=== PATIENT | male | born 1955 | race Caucasian/White ===

== ENCOUNTER 2016-02-16 00:23 | Inpatient (IN) | payer MEDICARE, MEDICAID, OTHER ==
[2016-02-16] VITALS (16 sets, daily range): BP systolic 131–227; BP diastolic 83–120; PULSE 57–90; RESP 11–20; TEMP 97.3–97.9; O2SAT 90–100
[~2016-02-16] VITALS: Ht 172.7 cm; Wt 93.7 kg
--- NOTE | 2016-02-16 00:54 | PD ---
HPI Chief Complaint: Neuro Symptoms/ Deficits Time Seen by Provider: 00:27 Travel History International Travel<30 days: No Contact w/Intl Traveler<30days: No Traveled to known affect area: No History of Present Illness HPI 60-year-old male arrives as a transfer from [place]. He evidently has a new left temporoparietal hypodensity with mild local mass effect and sulcal effacement. No large hemorrhagic collection is appreciable. Patient was transferred here with Dr Valero as the consulting neurosurgeon. Evidently he frequents the outside hospital. He arrives there with left-sided numbness and weakness. It was first noticed 2 days ago. Today he called 911 because he felt "all day confused. Outside records demonstrated the patient had difficulty expressing himself. Evidently has a history of stroke however denies residual deficit. Outside emergency department records include no dictation of frequent ED visits for weakness. Furthermore the patient stated to outside provider that he had not taken any of his medication for weeks. Blood glucose on arrival was 340. The patient offers no complaint upon arrival to the ER here. He does not know the year. The patient is oriented to himself in location. His blood pressure was 180/90 in route. Upon arrival here is 134/ 84. PFSH Past Medical History Cancer: Yes (COLON) High Cholesterol: Yes Cerebrovascular Accident: Yes Diabetes: Yes Patient Takes Glucophage: No Hypertension: Yes Myocardial Infarction: Yes Tetanus Vaccination: Unknown Influenza Vaccination: No Past Surgical History Other Surgery: Yes (COLON CANCER SURGERY) Social History Alcohol Use: No Tobacco Use: No Substance Use: Yes (MARIJUANA) Allergies-Medications (Allergen,Severity, Reaction): Coded Allergies: No Known Allergies (Unverified , 02/16/16) Reported Meds & Prescriptions Reported Meds & Active Scripts Active No Active Prescriptions or Reported Medications Review of Systems ROS Limitations: Clinical Condition Physical Exam Narrative GENERAL: 60-year-old male well-nourished well-developed no acute distress SKIN: Warm and dry. HEAD: Atraumatic. Normocephalic. EYES: Pupils equal and round. No scleral icterus. No injection or drainage. ENT: No nasal bleeding or discharge. Mucous membranes pink and moist. NECK: Trachea midline. No JVD. CARDIOVASCULAR: Regular rate and rhythm. No murmur appreciated. RESPIRATORY: No accessory muscle use. Clear to auscultation. Breath sounds equal bilaterally. GASTROINTESTINAL: Abdomen soft, non-tender, nondistended. Hepatic and splenic margins not palpable. MUSCULOSKELETAL: No obvious deformities. No clubbing. No cyanosis. No edema. NEUROLOGICAL: Alert and oriented name and location. There is no focal cranial nerve deficit or facial asymmetry. The patient's speech is clearly comprehensible. An element of expressive aphasia appears present. The patient can elevate both hands for assessment of pronator drift; the right hand drift first. The patient cannot elevate either leg off the bed despite a fairly dramatic efforts to do so. PSYCHOLOGIC: No evidence hallucination. Reasonably cooperative. Data Data Last Documented VS Vital Signs Date Time Temp Pulse Resp B/P Pulse Ox O2 Delivery O2 Flow Rate FiO2 02/16/16 01:07 79 16 174/120 96 Room Air 02/16/16 00:26 97.9 Orders Ecg Monitoring (02/16/16 00:27) Iv Access Insert/Monitor (02/16/16 00:27) Oximetry (02/16/16 00:27) Oxygen Administration (02/16/16 00:27) Mri Brain W/O Contrast (02/16/16 00:43) Admit Order (Ed Use Only) (02/16/16 01:28) MDM Medical Decision Making Medical Screen Exam Complete: Yes Emergency Medical Condition: Yes Medical Record Reviewed: Yes Differential Diagnosis Hemorrhagic stroke, ischemic stroke, altered mental status due to infection or metabolic disorder or polypharmacy or drug abuse Narrative Course The case was discussed with shortly following arrival. An MRI was added on to be performed stat. The patient has multiple medical problems and management per hospitalist service considered appropriate with consultation to neurosurgery. The patient is hemodynamically stable. He is protecting his airway. His GCS is estimated to be 15 (motor 6, verbal 5, eyes 4). At MRI pt was observed to have moved all extremities in coordinated fashion. He was unable to participate with scan 2/2 anxiety. After 1mg IV ativan patient was unable to participate with MR protocol. d/w Dr Montero who has ordered Precedex. Critical Care Narrative Aggregate critical care time was 45 minutes. Time to perform other separately billable procedures was not included in the critical care time. My time did not include minutes spent treating any other patients simultaneously or on activities that did not directly contribute to the patient's treatment. The services I provided to this patient were to treat and/or prevent clinically significant deterioration that could result in: progression of ICH, permanent neurologic injury I provided critical care services requiring my management, as noted below: Chart data review, documentation time, medication orders and management, vital sign assessments/reviewing monitor data, ordering and reviewing lab tests, ordering and interpreting/reviewing x-rays and diagnostic studies, care of the patient and discussion of the patient with the admitting physicians. Diagnosis Primary Impression: Hemorrhagic stroke Additional Impression: Hyperglycemia Admitting Information Admitting Physician Requests: Admit Scripts No Active Prescriptions or Reported Mg Middleton MD Feb 16, 2016 00:54
--- NOTE | 2016-02-16 01:40 | HHI.HP ---
HPI Service Critical Care Medicine Primary Care Physician Unknown Admission Diagnosis Hemorrhagic CVA, Hyperglycemia Diagnosis: Travel History International Travel<30 Days: No Contact w/Intl Traveler <30 Da: No Traveled to Known Affected Are: No History of Present Illness 50-year-old male who was accepted in transfer from [facility] by Dr. Valero with neurosurgery. He has a past history of prior stroke reportedly with no residual deficits, hypertension, diabetes mellitus. He presented to [facility] via [facility] with 2 day history of left- sided weakness and "feeling confused". Documentation from outside hospital indicates that he has frequent ED visits related to weakness. His blood glucose was 340. He had had no reported seizure activity. Documentation indicates that he had left-sided pronator drift and expressive aphasia. CT brain report indicates that there was a comparison study from 11/30/15 that states new left temporoparietal hypodensity with mild mass effect and sulcal effacement. There is central hyperdensity in this location suggesting early petechial hemorrhage. Remote gangliocapsular lacunar infarcts. Remote infarct right cerebellum. EKG demonstrates sinus rhythm. Past Family Social History Allergies: Coded Allergies: No Known Allergies (Unverified , 02/16/16) Past Medical History Stroke Diabetes mellitus Hypertension Hyperlipidemia Retinopathy Peripheral neuropathy Degenerative disc disease Colon cancer Records from outside hospital indicate history of congenital heart disease. Patient was not able to be more specific about his diagnosis when I inquired after MRI. He has no sternotomy scar. Past Surgical History Colectomy Reported Medications Norvasc 5 g by mouth twice a day Aspirin 81 mg by mouth daily Humalog 10 units subcutaneous twice a day Novolin 70/30 units subcutaneous twice a day before meals Vitamin D 50,000 international units weekly Isosorbide dinitrate 40 mg by mouth twice a day Lisinopril 20 mill grams by mouth daily Reglan 10 mg by mouth every 6 hours as needed for nausea and vomiting Social History Reportedly no history of tobacco alcohol or illicit drug use Physical Exam Vital Signs Vital Signs Date Time Temp Pulse Resp B/P Pulse Ox O2 Delivery O2 Flow Rate FiO2 02/16/16 01:07 79 16 174/120 96 Room Air 02/16/16 00:26 97.9 88 14 134/84 97 Physical Exam Temp 97.9 oral Pulse 82 respirations 16 blood pressure 131/83 sats 100% on room air GENERAL: Well-nourished, well-developed patient who is sleepy in ISC bed following sedation for MRI. SKIN: Warm and dry. HEAD: Atraumatic. Normocephalic. EYES: Pupils equal and round, 3mm reactive. No scleral icterus. No injection or drainage. ENT: No nasal bleeding or discharge. Mucous membranes pink and moist. NECK: Trachea midline. No JVD. CARDIOVASCULAR: Regular rate and rhythm. No murmurs rubs or gallops. No sternotomy scar RESPIRATORY: No accessory muscle use. Clear to auscultation. Breath sounds equal bilaterally. GASTROINTESTINAL: Abdomen soft, non-tender, nondistended. Vertical abdominal incision well healed. MUSCULOSKELETAL: Extremities without clubbing, cyanosis, or edema. No obvious deformities. NEUROLOGICAL: Sleepy but arouses to voice post sedation. Moves all extremities to command but not completely cooperative with motor exam. +/- R pronator drift. No facial droop. . No obvious cranial nerve deficits. Oriented to self, hospital. Assessment and Plan Assessment and Plan NEURO: History of stroke Peripheral neuropathy Anxiety L parietal ischemic stroke with small peticheal hemorrhagic conversion. Check 2 D Echo to evaluate from embolic source, carotid u/s, Lipids. MRI L parietal stroke with tiny foci of hemorrhage. Obtain MRA brain/neck- no evidence of vascular abnormality. No carotid stenosis Dr. Valero to evaluate. Required precedex/versed for compliance with MRI. When I initially went to evaluate patient in ED he was awake and conversant with ED registrar and moving all extremities, using his cell phone but complaining of hand numbness. I was called to another medical emergency and then patient was taken to MRI. He was anxious in MRI so Ativan 1 mg IV and then precedex drip were ordered to facilitate MRI. However he became combative with staff requiring security and multiple individuals to assist at bedside. Was given Versed 5 mg IV by ED staff for this reason. RESP: On RA. CV: Hypertension Hyperlipidemia Congenital cardiac anomaly Hold lisinopril for now due to elevated creatinine and unknown baseline renal function. Will give labetalol prn SBP >175 as currently feel that risk of inducing ischemia with lower BP is more likely than risk of hemorrhagic conversion with SBP 160-175 range given tiny foci of hemorrhage that remained small on subsequent MRI. However, will followup recommendations of neuro colleagues. GI: Status post colectomy Nothing by mouth for now. Bedside swallowing assessment and advance diet as tolerated. FEN/RENAL: REED vs ?Chronic kidney disease Unknown baseline renal function. Creatinine at outside hospital was 2.51 Follow-up BMP in a.m. Normal saline 84 mL/h ID: No leukocytosis. White blood cell count at outside hospital was 7.2 HEME: No acute heme and the logic issues. Hemoglobin at outside hospital was 13.7. Coags including PT/INR/PTT at outside hospital were all normal. ENDO: Diabetes mellitus Medium dose insulin sliding scale ac/hs PROPH: SCDs/teds/early ambulation for DVT prophylaxis. Pharmacologic DVT prophylaxis contraindicated due to intracerebral hemorrhage. Protonix 40 mg IV daily for stress ulcer prophylaxis. ACCESS: Peripheral IV providing adequate access at this time Level 3 Ninoska Montero MD Feb 16, 2016 01:40
[2016-02-16] MEDS ORDERED: LORazepam 2 MG/ML VIAL IV PUSH ONE (03:15)
[2016-02-16] MEDS ORDERED: SODIUM CHLOR 0.9% 1000 ML INJ 1,000 ML IV SCH (03:34)
[2016-02-16] MEDS ORDERED: DEXTROSE 50% IN WATER 50 ML VIAL(D50) IV PUSH PRN (03:45)
[2016-02-16] MEDS ORDERED: CHLORHEXIDINE GLUCONATE 2 % 1 PACK (2 CLOTHS) TOP PRN (03:45)
[2016-02-16] MEDS ORDERED: SODIUM CHLORIDE 0.9% FLUSH 5 ML FLUSH IV FLUSH PRN (03:45)
[2016-02-16] MEDS ORDERED: MISCELLANEOUS NURSING INFORMATION XX SCH (03:45)
[2016-02-16] MEDS ORDERED: RESP: ALBUTEROL 2.5 MG/3 ML NEB (PRN) INH (03:45)
[2016-02-16] MEDS ORDERED: GLUCAGON 1 MG/ML VIAL OTHER PRN (03:45)
[2016-02-16] MEDS: CHLORHEXIDINE GLUCONATE 2 % 1 PACK (2 CLOTHS) TOP SCH (04:00)
[2016-02-16] MEDS ORDERED: DEXMEDETOMIDINE INJ 50 ML IV SCH (04:00)
[2016-02-16] MEDS ORDERED: MIDAZOLAM HCL 5 MG/5 ML VIAL IV PUSH ONE ×2 (04:30→11:15)
[2016-02-16] MEDS ORDERED: MIDAZOLAM HCL 5 MG/ML VIAL (1 ML) ONE (04:31)
--- NOTE | 2016-02-16 05:36 | RADRPT ---
EXAM DATE/TIME: 02/16/2016 03:47 This report includes an Addendum and supersedes previous reports for this exam. [facility] COMPARISON: No previous studies available for comparison. INDICATIONS : CVA. Lower extremity weakness. MEDICAL HISTORY : Carcinoma, colon. SURGICAL HISTORY : Colon surgery. ENCOUNTER: Initial ACUITY: 2 day PAIN SCORE: 0/10 LOCATION: head. TECHNIQUE: Multiplanar, multisequence MRI of the brain was performed without contrast. FINDINGS: Abnormal signal involving the cortex and underlying white matter of the left parietal lobe posteriorl y. There is restricted diffusion involving this area. Tiny foci of blooming artifact seen on the SWI MIP images consistent with some blood product. Periventricular high T2 signal abnormality is seen inv olving both cerebral hemispheres. These areas do not show restricted diffusion. Atrophy is noted. Muc osal thickening involving the frontal sinuses, right sphenoid and bilateral ethmoid air cells. No air -fluid levels. Ventricles are normal in size given the level of atrophy. CONCLUSION: 1. Acute infarction involving left parietal lobe posteriorly. Tiny foci of signal abnormality consist ent with blood product within this area of stroke. 2. Atrophy and chronic small vessel ischemic change. Alex Carbone Jr., MD on February 16, 2016 at 5:31 Board Certified Radiologist. This report was verified electronically. ADDENDUM: In addition to the left sided acute infarct, there is a focus of restricted diffusion identified on t he right, a sub-insular external capsule region also characteristic of an area of acute infarction.. Tree Haro MD on February 16, 2016 at 8:53 Board Certified Radiologist. This report was verified electronically.
--- NOTE | 2016-02-16 05:38 | RADRPT ---
EXAM DATE/TIME: 02/16/2016 03:47 [facility] COMPARISON: No previous studies available for comparison. INDICATIONS : CVA. Lower extremity weakness. MEDICAL HISTORY : Carcinoma, colon. SURGICAL HISTORY : Colon surgery. ENCOUNTER: Initial ACUITY: 2 day PAIN SCORE: 0/10 LOCATION: head. Please note a normal MRA of the brain does not entirely exclude the possibility of a small aneurysm, nor the possibility of distal intracranial vessel disease. TECHNIQUE: 3D time of flight MRA was performed. Source images, multiplanar STS MIP, and 3D volume MIP reconstru ctions were reviewed. FINDINGS: There is excellent visualization of the major intracranial arteries out to the second-order branch ve ssels. There is no evidence for aneurysm, vessel truncation or stenosis, and no evidence for vascula r malformation.CONCLUSION: Normal examination. Alex Carbone Jr., MD on February 16, 2016 at 5:35 Board Certified Radiologist. This report was verified electronically.
--- NOTE | 2016-02-16 05:40 | RADRPT ---
EXAM DATE/TIME: 02/16/2016 03:47 [facility] COMPARISON: No previous studies available for comparison. INDICATIONS : Stenosis. MEDICAL HISTORY : Carcinoma, colon. SURGICAL HISTORY : Colon surgery. ENCOUNTER: Initial ACUITY: 2 day PAIN SCORE: 0/10 LOCATION: neck. Percent stenosis is calculated using the diameter of the stenotic region over the diameter of the nor mal distal internal carotid artery. TECHNIQUE: 3D time of flight MRA of the extracranial circulation was performed using a neurovascular coil. Post processing was performed including rotating subvolume maximum intensity projections of each carotid artery, rotating full-volume maximum intensity projections of both carotid arteries, sagittal and cor onal sliding thin-slab reformations of each carotid artery, and left oblique sliding thin slab reform ation through the aortic arch to include the origin of the arch branch vessels. FINDINGS: AORTIC ARCH: Breathing motion artifact degrades the evaluation of the arch vessels. There is a three vessel origin of the great vessels from the aorta. No evidence of ostial narrowing. RIGHT CAROTID: The common carotid artery is intact. The carotid bulb has a normal configuration without ulceration or narrowing. The internal carotid artery lumen is smooth without stenosis. The external carotid ar sandy is intact. LEFT CAROTID: The common carotid artery is intact. The carotid bulb has a normal configuration without ulceration or narrowing. The internal carotid artery lumen is smooth without stenosis. The external carotid ar sandy is intact. VERTEBRALS: The vertebral arteries have a symmetric diameter. No stenotic lesions are seen. CONCLUSION: 1. Patent carotid arteries and vertebral arteries. Alex Carbone Jr., MD on February 16, 2016 at 5:37 Board Certified Radiologist. This report was verified electronically.
[2016-02-16] MEDS: INSULIN ASPART SUPPLEMENTAL SCALE SQ SCH ×4 (07:00→22:30)
[2016-02-16 08:12] LABS: HDL CHOLESTEROL 39.2 MG/DL (40.0-60.0)
[2016-02-16 08:23] LABS: LDL CHOLESTEROL 166 MG/DL (0-99)
[2016-02-16] MEDS: SODIUM CHLOR 0.9% 1000 ML INJ 1,000 ML IV SCH ×2 (08:48→22:08)
[2016-02-16] MEDS ORDERED: ASPIRIN EC 325 MG TABEC PO SCH (09:00)
[2016-02-16] MEDS: PANTOPRAZOLE SODIUM 40 MG VIAL IV SCH (09:23)
[2016-02-16] MEDS: SODIUM CHLORIDE 0.9% FLUSH 5 ML FLUSH IV FLUSH SCH ×2 (09:23→20:39)
[2016-02-16] MEDS ORDERED: LIDOCAINE HCL 2% 100 MG/5 ML SYRINGE ONE (11:14)
[2016-02-16] MEDS ORDERED: ATROPINE SULFATE 1 MG/10 ML SYRINGE ONE (11:14)
[2016-02-16] MEDS ORDERED: EPINEPHrine HCL (1:10,000) 1 MG/10 ML SYRINGE ONE (11:14)
[2016-02-16] MEDS ORDERED: LORazepam 2 MG/ML VIAL ONE (11:46)
--- NOTE | 2016-02-16 11:47 | PD.CONS ---
HPI Service Neurosurgery Consult Requested By ED Reason for Consult abnormal MRI Primary Care Physician Parmjit Francisco MD History of Present Illness 60 yr old with hx of DM presented with confusion, transferred from an outside hospital for abnormal head CT. He was quite agitated in the ED and required restraints for the safety of his care givers. He remains very confused with short term memory difficulty and poor orientation. Right parietal ischemia, acute with hemosiderin deposition was seen on MRI. Review of Systems ROS Limitations: Uncooperative, Combative, Poor Historian Constitutional: COMPLAINS OF: Fatigue Integumentary: COMPLAINS OF: Nail changes Neurologic: COMPLAINS OF: Paresthesias Psychiatric: COMPLAINS OF: Agitation Past Family Social History Allergies: Coded Allergies: No Known Allergies (Unverified , 02/16/16) Past Medical History DM CVA HTN Past Surgical History None Reported Medications Reported Meds & Active Scripts Active No Active Prescriptions or Reported Medications Family History Positive for HTN and DM as well as cerebrovascular disease Social History Quit tobacco, occasional ETOH and marijuana, does not work. Physical Exam Vital Signs Vital Signs Date Time Temp Pulse Resp B/P Pulse Ox O2 Delivery O2 Flow Rate FiO2 02/16/16 05:00 100 Nasal Cannula 2.00 02/16/16 04:50 82 16 131/83 93 Nasal Cannula 2 02/16/16 04:45 80 16 151/90 92 Nasal Cannula 2 02/16/16 04:40 82 16 155/99 92 Nasal Cannula 2 02/16/16 04:20 83 16 186/113 90 02/16/16 02:00 76 16 170/90 100 Room Air 02/16/16 01:07 79 16 174/120 96 Room Air 02/16/16 00:26 97.9 88 14 134/84 97 Physical Exam Awake, tired, opens eyes to voice, speech fluent but repeats the same questions appears well nourished and groomed Pupils small and reactive, face symmetric, right jamar sensory loss includes the lower face Motor strength excellent in both upper and lower extremities, Neglect right sided. No Austin or Babinski Laboratory Laboratory Tests Test 02/16/16 02/16/16 05:15 06:01 Nasal Screen MRSA (PCR) NEGATIVE Triglycerides Level 132 Cholesterol Level 232 LDL Cholesterol 166 HDL Cholesterol 39.2 Cholesterol/HDL Ratio 5.91 Assessment and Plan Diagnosis: (1) Cerebral infarction, associated with systemic hypoxia or ischemia, acute Plan: A repeat CT of the head is ordered. In the absence of new bleeding anti coagulation may be appropriate. Aspirin was ordered for now and can be stopped if therapeutic on another anticoagulant. PT/OT/ST, EEG and neuropsychology evaluation may be helpful. Malick Valero Feb 16, 2016 11:47
[2016-02-16] MEDS: LABETALOL HCL 100 MG/20 ML VIAL IV PUSH PRN ×2 (12:22→18:06)
[2016-02-16] MEDS: MORPHINE SULFATE 4 MG/ML INJ IV PRN ×4 (12:25→23:14)
[2016-02-16] MEDS ORDERED: LORazepam 2 MG/ML VIAL IVP ONE (13:00)
--- NOTE | 2016-02-16 13:41 | RADRPT ---
EXAM DATE/TIME: 02/16/2016 13:21 [facility] COMPARISON: MRI BRAIN W/O CONTRAST, February 16, 2016, 3:47. INDICATIONS : Altered mental status. Right parietal ischemia, acute with hemosiderin deposition was seen on MRI. RADIATION DOSE: 56.35 CTDIvol (mGy) MEDICAL HISTORY : Hypertension. Diabetes mellitus type 2. SURGICAL HISTORY : None. ENCOUNTER: Initial ACUITY: 1 day PAIN SCALE: 0/10 LOCATION: cranial TECHNIQUE: Multiple contiguous axial images were obtained of the head. Using automated exposure control and adj ustment of the mA and/or kV according to patient size, radiation dose was kept as low as reasonably a chievable to obtain optimal diagnostic quality images. FINDINGS: There is low attenuation in the left parietal region identified system with the area of known infarct ion. There is patchy periventricular white matter disease. Remote basal ganglia lacunar infarcts are identified. No fractures. No large acute hemorrhage or mass is identified. There is minimal punctate high density in the left parietal infarct corresponding to the foci of petechial hemorrhage noted on the MRI. CONCLUSION: Left parietal infarct and remote lacunar infarcts identified patchy white matter disease. Subtle pet echial hemorrhage left parietal infarct. Tree Haro MD on February 16, 2016 at 13:38 Board Certified Radiologist. This report was verified electronically.
[2016-02-16 14:04] LABS: PROTHROMBIN TIME - PATIENT 10.5 SEC (9.8-11.6)
[2016-02-16 14:30] LABS: HDL CHOLESTEROL 40.9 MG/DL (40.0-60.0); TOTAL PROTEIN SPE 5.9 GM/DL (6.0-7.6)
[2016-02-16] MEDS: hydrALAZINE HCL 25 MG TAB PO SCH ×3 (15:50→22:30)
[2016-02-16] MEDS: WARFARIN SOD 5 MG TAB PO SCH (16:06)
--- NOTE | 2016-02-16 17:11 | EC ---
Study Study Date:02/16/2016 STUDY CONCLUSIONS SUMMARY - Left ventricle: The cavity size was normal. Wall thickness was normal. Systolic function was normal. The estimated ejection fraction was in the range of 55% to 60%. Wall motion was normal; there were no regional wall motion abnormalities. Doppler parameters are consistent with abnormal left ventricular relaxation (grade 1 diastolic dysfunction). - Left atrium: The atrium was mildly dilated. If LV function is below 40, please consider prescribing an ACEI or ARB or document rationale for non-use. PROCEDURE DATA STUDY STATUS: Elective. Procedure: Transthoracic echocardiography. Image quality was good. Scanning was performed from the parasternal, apical, and subcostal acoustic windows. Study completion: The patient tolerated the procedure well. Transthoracic echocardiography. M-mode, complete 2D, complete spectral Doppler, and color Doppler. Patient status: Inpatient. CARDIAC ANATOMY LEFT VENTRICLE: The cavity size was normal. Wall thickness was normal. Systolic function was normal. The estimated ejection fraction was in the range of 55% to 60%. Wall motion was normal; there were no regional wall motion abnormalities. Doppler parameters are consistent with abnormal left ventricular relaxation (grade 1 diastolic dysfunction). AORTIC VALVE: Trileaflet; normal thickness leaflets. Doppler: Transvalvular velocity was within the normal range. There was no stenosis. No regurgitation. AORTA: Aortic root: The aortic root was normal in size. MITRAL VALVE: Structurally normal valve. Doppler: Transvalvular velocity was within the normal range. There was no evidence for stenosis. Trace regurgitation. Mean gradient: 2mm Hg (D). Peak gradient: 7mm Hg (D). LEFT ATRIUM: The atrium was mildly dilated. RIGHT VENTRICLE: The cavity size was normal. Wall thickness was normal. PULMONIC VALVE: Doppler: Transvalvular velocity was within the normal range. There was no evidence for stenosis. No regurgitation. TRICUSPID VALVE: Structurally normal valve. Doppler: Transvalvular velocity was within the normal range. Trace to mild regurgitation. PULMONARY ARTERY: The main pulmonary artery was normal-sized. Systolic pressure was within the normal range. RIGHT ATRIUM: The atrium was normal in size. PERICARDIUM: There was no pericardial effusion. SYSTEMIC VEINS: Inferior vena cava: The vessel was normal in size. BASIC MEASUREMENTS ADULT Normal Left ventricle LV internal dimension, ED, chordal level, *40.3 mm 43-52 PLAX LV posterior wall thickness, ED 8.56 mm IVS/LVPW ratio, ED 1.23 <1.3 Ventricular septum Septal thickness, ED 10.5 mm Aortic valve Leaflet separation 23 mm 15-26 Left atrium Anterior-posterior dimension 39 mm Right ventricle RV internal dimension, ED, PLAX *18.7 mm 19-38 BASIC MEASUREMENTS ADULT Normal Aortic valve Leaflet separation 23 mm 15-26 Aorta Root diameter, ED 33 mm 20-37 DOPPLER MEASUREMENTS ADULT Normal Main pulmonary artery Pressure, S 16 mm Hg =30 Aortic valve VTI, S 43.7 cm Mitral valve Peak E-wave velocity 79 cm/s Peak A-wave velocity 123 cm/s Mean velocity, D 68.9 cm/s Mean gradient, D 2 mm Hg Peak gradient, D 7 mm Hg Peak E/A ratio 0.6 Tricuspid valve Regurgitant peak velocity 113 cm/s Peak RV-RA gradient, S 5 mm Hg Maximal regurgitant velocity 113 cm/s Systemic veins Estimated CVP 10 mm Hg Right ventricle RV pressure, S 16 mm Hg <30 LEGEND: Mean values are shown as u=mean value. Asterisk (*) chen values outside specified normal range. Prepared and signed by Kal Lazo [id number]
[2016-02-16 18:05] LABS: HEMOGLOBIN A1a 1.1 %; HEMOGLOBIN A1b 1.2 %; HEMOGLOBIN Ao 75.2 %; HEMOGLOBIN F 1.7 %; HEMOGLOBIN P3 5.5 %
--- NOTE | 2016-02-16 19:24 | MG ---
cc: CHASE AZAR Lab No: Date: Age: Sex: M Race: ELECTROENCEPHALOGRAM NUMBER [id number] INTRODUCTION A 60-year-old. Left MCA infarct. DESCRIPTION I do not see any definite left hemisphere abnormalities, some diffuse alpha rhythms and beta rhythms are seen. No epileptiform or seizure activity is noted. Photic stimulation is performed without significant posterior driving. IMPRESSION A normal EEG. No evidence for a focal or diffuse abnormality. MD PAULETTE Pinedo/REJI /6:45 PM /7:18 PM
[2016-02-16] MEDS: ONDANSETRON HCL 4 MG/2 ML VIAL IV PRN (20:15)
[2016-02-16] MEDS: hydrALAZINE HCL 20 MG/ML VIAL IV PUSH PRN ×2 (20:40→23:16)
[2016-02-16] MEDS ORDERED: LABETALOL HCL 100 MG/20 ML VIAL IV PUSH PRN (21:00)
[2016-02-17] VITALS (13 sets, daily range): BP systolic 149–184; BP diastolic 73–106; PULSE 86–122; RESP 9–24; TEMP 97.8–98.8; O2SAT 96–100
[2016-02-17] MEDS ORDERED: DEXMEDETOMIDINE INJ 50 ML IV SCH (00:15)
--- NOTE | 2016-02-17 01:04 | RADRPT ---
EXAM DATE/TIME: 02/17/2016 00:45 [place] COMPARISON: MRI BRAIN W/O CONTRAST, February 16, 2016, 3:47. CT BRAIN W/O CONTRAST, February 16, 2016, 13:21. INDICATIONS : Altered mental status with vomiting. RADIATION DOSE: 57.48 CTDIvol (mGy) MEDICAL HISTORY : Non-responsive. SURGICAL HISTORY : Non-responsive. ENCOUNTER: Initial ACUITY: 1 day PAIN SCALE: Non-responsive LOCATION: cranial TECHNIQUE: Multiple contiguous axial images were obtained of the head. Using automated exposure control and adj ustment of the mA and/or kV according to patient size, radiation dose was kept as low as reasonably a chievable to obtain optimal diagnostic quality images. FINDINGS: Stable appearance compared to the prior study. An acute left parietal infarction is again observed. S mall foci of high attenuation within the infarction consistent with areas of hemorrhage. No new area of infarction. No worsening hemorrhage. Old lacunar infarctions involving left basal ganglia. Periven tricular low attenuation change consistent with chronic small vessel ischemic change. Paranasal sinus es show mucosal thickening throughout scattered ethmoid air cells. Mastoid air cells are clear. CONCLUSION: Stable left parietal infarction. Alex Carbone Jr., MD on February 17, 2016 at 0:58 Board Certified Radiologist. This report was verified electronically.
[2016-02-17] MEDS ORDERED: ONDANSETRON HCL 4 MG/2 ML VIAL IV PUSH ONE (01:15)
[2016-02-17] MEDS: hydrALAZINE HCL 20 MG/ML VIAL IV PUSH PRN (03:46)
[2016-02-17] MEDS: CHLORHEXIDINE GLUCONATE 2 % 1 PACK (2 CLOTHS) TOP SCH (04:00)
[2016-02-17 05:07] LABS: AUTOMATED NEUTROPHIL # 12.8 TH/MM3 (1.8-7.7); BASOPHIL # 0.1 TH/MM3 (0-0.2); BASOPHIL % 0.6 % (0.0-2.0); EOSINOPHIL # 0.1 TH/MM3 (0-0.4); EOSINOPHIL % 0.8 % (0.0-4.0); HEMATOCRIT 43.7 % (39.0-51.0); HEMO FLAGS DIFF FINAL; LYMPH % 6.4 % (9.0-44.0); LYMPHOCYTE # 0.9 TH/MM3 (1.0-4.8); MEAN CELL VOLUME 86.1 FL (80.0-100.0); MEAN CORPUSCULAR HGB CONC 33.7 % (32.0-36.0); MONO % 4.5 % (0.0-8.0); NEUT % 87.7 % (16.0-70.0); PLATELET COUNT 255 TH/MM3 (150-450); RED BLOOD COUNT 5.08 MIL/MM3 (4.50-5.90); RED CELL DISTRIBUTION WIDTH 13.5 % (11.6-17.2); WHITE BLOOD COUNT 14.5 TH/MM3 (4.0-11.0)
[2016-02-17 05:23] LABS: INTERNATIONAL NORMALIZED RATIO 0.9 RATIO; PROTHROMBIN TIME - PATIENT 10.4 SEC (9.8-11.6)
[2016-02-17 05:25] LABS: ALKALINE PHOSPHATASE 153 U/L (45-117); ALT (GPT) 12 U/L (12-78); ANION GAP 9 MEQ/L (5-15); AST (GOT) 15 U/L (15-37); BICARBONATE 23.8 MEQ/L (21.0-32.0); BLOOD UREA NITROGEN 16 MG/DL (7-18); CHLORIDE 107 MEQ/L (98-107); GLOMERULAR FILTRATION RATE 29 ML/MIN (>89); MAGNESIUM 2.1 MG/DL (1.5-2.5); POTASSIUM 4.2 MEQ/L (3.5-5.1); SODIUM (NA) 140 MEQ/L (136-145); TOTAL BILIRUBIN ADULT 0.9 MG/DL (0.2-1.0)
[2016-02-17] MEDS: INSULIN ASPART SUPPLEMENTAL SCALE SQ SCH ×3 (06:49→22:54)
--- NOTE | 2016-02-17 08:15 | HHI.PR ---
Subjective Remarks sr Objective Vital Signs Date Time Temp Pulse Resp B/P Pulse Ox O2 Delivery O2 Flow Rate FiO2 02/17/16 06:00 108 02/17/16 04:00 97.8 96 15 164/82 98 02/17/16 04:00 96 02/17/16 02:00 86 02/17/16 00:00 90 02/17/16 00:00 98.1 90 9 166/81 96 02/16/16 22:00 78 02/16/16 20:00 80 02/16/16 20:00 97.8 80 12 198/96 95 02/16/16 19:55 97 21 02/16/16 18:00 77 02/16/16 16:00 97.9 85 14 227/103 99 02/16/16 16:00 85 02/16/16 14:00 70 02/16/16 12:00 97.3 90 20 169/90 100 02/16/16 12:00 90 02/16/16 10:00 69 I/O 02/16/16 02/16/16 02/16/16 02/17/16 02/17/16 02/17/16 07:00 15:00 23:00 07:00 15:00 23:00 Intake Total 959 ml 695 ml 569 ml Output Total 600 ml 300 ml 775 ml Balance 359 ml 395 ml -206 ml Intake Oral 240 ml 250 ml IV Total 719 ml 445 ml 569 ml Output Urine Total 600 ml 200 ml 325 ml Emesis 100 ml 450 ml # Voids 3 1 3 # Bowel Movements 0 Result Diagram: 02/17/16 0437 02/17/16 0437 Objective Remarks much more alert and awake vff moves all well follows commands Assessment and Plan Assessment and Plan there is some petechial blood in the infarct but with bilat cva at risk for new cva will dw family about anticoagulation he probably would do ok on coumadin now but some risk and otherwise could wait 4 weeks fu hypercoag screen and holter echo neg ldl inc but statin can inc risk of bleeding and if am starting coumadin so will hold on statin for 2 months and start then trop neg Walt Peterson MD Feb 17, 2016 08:15
--- NOTE | 2016-02-17 08:16 | MB ---
cc: CHASE AZAR M.D. DATE OF CONSULTATION: 02/16/2016 HISTORY OF PRESENT ILLNESS The patient is a 60-year-old man who came from [facility] with a history hypertension, prior stroke, diabetes, left-sided weakness, feeling confused, sugar was 340, left-sided drift, left-sided hypodensity, some minimal petechial hemorrhage. ALLERGIES NO KNOWN DRUG ALLERGIES. PAST MEDICAL HISTORY As above, also: 1. Hyperlipidemia. 2. Retinopathy. 3. Peripheral neuropathy. 4. DJD. 5. Colon cancer. MEDICATION Medications at home: 1. Norvasc. 2. 81 of aspirin. 3. Humalog insulin. 4. Novolin. 5. Vitamin D. 6. Isosorbide. 7. Lisinopril. 8. Reglan. REVIEW OF SYSTEMS Really unable to get a great review of systems, he says yes to me with everything I ask him. PHYSICAL EXAMINATION VITAL SIGNS: He has been in sinus rhythm, according to the nurse, 186/113 and 131/83, 93, 82, afebrile. NECK: There were no carotid bruits. HEART: Heart was regular rhythm. I do not detect a murmur. Pupils were equal. Visual bianchi were full. He actually has his eyes deviated slightly to the left, more than the right. Face is symmetric. He moves all extremities well. Toes are downgoing bilaterally. DTRs are trace. He does not know the year. He does not know where he is, he says hopefully in a cab. He may live with his , it is hard to say. Not a good historian. LABORATORY DATA MRA of the Cffofl-fb-Woqcnw and neck were read as normal. MRI of the brain shows several small right MCA infarcts and a larger left posterior MCA infarct, some minimal petechial change on the SWI images. IMPRESSION Left MCA infarct with some small right ones, likely cardioembolic. Will check an echocardiogram. I would anticoagulate him with Coumadin, this is likely cardioembolic. Check troponin, some additional blood work. Monitor him on a Holter, look for any atrial fibrillation. I will be following him with you in the hospital. Considering his age, will check a hypercoag screen on him. Will check a CT scan of his brain also to just get a better feel of how much blood is in there, because I think the anticoagulation is going to be his main treatment for prevention of future stroke. MD PAULETTE Pinedo/TLL /8:47 AM /8:15 AM
[2016-02-17] MEDS: ONDANSETRON HCL 4 MG/2 ML VIAL IV PRN (09:24)
[2016-02-17] MEDS: PANTOPRAZOLE SODIUM 40 MG VIAL IV SCH (09:24)
[2016-02-17] MEDS: hydrALAZINE HCL 50 MG TAB PO SCH ×3 (09:24→18:00)
[2016-02-17] MEDS: SODIUM CHLORIDE 0.9% FLUSH 5 ML FLUSH IV FLUSH SCH ×2 (09:25→21:00)
[2016-02-17 10:58] LABS: RAPID PLASMA REAGIN SCREEN NON-REACTIVE (NON-REACTVE)
[2016-02-17] MEDS: WARFARIN SOD 5 MG TAB PO SCH ×2 (16:00→16:34)
--- NOTE | 2016-02-17 16:29 | HHI.CCPN ---
Subjective Remarks/Hospital Course 50-year-old male who was accepted in transfer from [facility] by Dr. Valero with neurosurgery. He has a past history of prior stroke reportedly with no residual deficits, hypertension, diabetes mellitus. He presented to [facility] via [facility] with 2 day history of left- sided weakness and "feeling confused". Documentation from outside hospital indicates that he has frequent ED visits related to weakness. His blood glucose was 340. He had had no reported seizure activity. Documentation indicates that he had left-sided pronator drift and expressive aphasia. CT brain report indicates that there was a comparison study from 11/30/15 that states new left temporoparietal hypodensity with mild mass effect and sulcal effacement. There is central hyperdensity in this location suggesting early petechial hemorrhage. Remote gangliocapsular lacunar infarcts. Remote infarct right cerebellum. EKG demonstrates sinus rhythm. 02/16 The patient had an episode of nausea and vomiting around midnight, repeat CT of the head imaging obtained noticed stable left parietal infarction. Patient tolerating a heart healthy diet today. Objective Vital Signs Date Time Temp Pulse Resp B/P Pulse Ox O2 Delivery O2 Flow Rate FiO2 02/17/16 14:00 102 02/17/16 12:00 98.4 11 163/80 99 02/16/16 19:55 21 02/16/16 07:00 Nasal Cannula 2.00 Intake and Output 02/16/16 02/16/16 02/17/16 08:00 16:00 00:00 Intake Total 959 ml 695 ml Output Total 600 ml 300 ml Balance 359 ml 395 ml Result Diagram: 02/17/16 0437 02/17/16 0437 Imaging Last [address] 02/17/16 0000 Signed Impressions: Service Date/Time: Wednesday, February 17, 2016 00:45 - CONCLUSION: Stable left parietal infarction. Alex Carbone Jr., MD Head CT 02/16/16 1122 Signed Impressions: Service Date/Time: Tuesday, February 16, 2016 13:21 - CONCLUSION: Left parietal infarct and remote lacunar infarcts identified patchy white matter disease. Subtle petechial hemorrhage left parietal infarct. Tree Haro MD Brain MRI 02/16/16 0043 Signed Impressions: Service Date/Time: Tuesday, February 16, 2016 03:47 - CONCLUSION: 1. Acute infarction involving left parietal lobe posteriorly. Tiny foci of signal abnormality consistent with blood product within this area of stroke. 2. Atrophy and chronic small vessel ischemic change. Alex Carbone Jr., MD ADDENDUM: In addition to the left sided acute infarct, there is a focus of restricted diffusion identified on the right, a sub-insular external capsule region also characteristic of an area of acute infarction.. Tree Haro MD Neck Magnetic Resonance Angiography 02/16/16 Signed Impressions: Service Date/Time: Tuesday, February 16, 2016 03:47 - CONCLUSION: 1. Patent carotid arteries and vertebral arteries. Alex Carbone Jr., MD Head Magnetic Resonance Angiography 02/16/16 Signed Impressions: Service Date/Time: Tuesday, February 16, 2016 03:47 - CONCLUSION: Normal examination. Alex Carbone Jr., MD Last [address] 02/17/16 Signed Impressions: Service Date/Time: Wednesday, February 17, 2016 00:45 - CONCLUSION: Stable left parietal infarction. Alex Carbone Jr., MD Objective Remarks GENERAL: Well-nourished, well-developed, alert patient with obvious inappropriate conversation, and short-term memory loss SKIN: Warm and dry. HEAD: Atraumatic. Normocephalic. EYES: Pupils equal and round, 3mm reactive. No scleral icterus. No injection or drainage. ENT: No nasal bleeding or discharge. Mucous membranes pink and moist. NECK: Trachea midline. No JVD. CARDIOVASCULAR: Regular rate and rhythm. No murmurs rubs or gallops. No sternotomy scar RESPIRATORY: No accessory muscle use. Clear to auscultation. Breath sounds equal bilaterally. On room air GASTROINTESTINAL: Abdomen soft, non-tender, nondistended. Vertical abdominal incision well healed. MUSCULOSKELETAL: Extremities without clubbing, cyanosis, or edema. No obvious deformities. NEUROLOGICAL: Moves extremities 4 , alert and oriented to self .No obvious cranial nerve deficits. Noted difficulty with fine motor movement, dialing phone, gasping food. Urinary Catheter: No Vascular Central Line Catheter: No A/P Assessment and Plan NEURO: History of stroke Peripheral neuropathy Anxiety L parietal ischemic stroke with small peticheal hemorrhagic conversion. Check 2 D Echo to evaluate from embolic source, carotid u/s, Lipids. MRI L parietal stroke with tiny foci of hemorrhage. MRA brain/neck- no evidence of vascular abnormality. No carotid stenosis Nsgy Dr. Valero on board Neurology Dr.Mac Hammond- possible etiology cardioembolic,planned discussion with family (daughters)regarding initiation of Coumadin therapy Psychiatry awchwpu-hqtsme-av recommendations RESP: No acute issues. 100% O2 sat on Room Air CV: Hypertension Hyperlipidemia Congenital cardiac anomaly Lisinopril secondary to elevated creatinine. Obtain nephrology consult Labetalol when necessary Hydralazine 20 mg 4 times a day GI: Status post colectomy Heart healthy diet Formal swallow assessment1/2- no restrictions Bowel regimen FEN/RENAL: REED vs ?Chronic kidney disease Creatinine 2.51->2.34 Follow-up BMP Discontinue Normal saline 84 mL/h, Hep-Lock IV ID: No acute issues Afebrile HEME: Monitor CBC Follow up results of immunological studies, and prothrombin gene mutation study ENDO: Diabetes mellitus Medium dose insulin sliding scale ac/hs PROPH: SCDs/teds/early ambulation for DVT prophylaxis. Pharmacologic DVT prophylaxis contraindicated due to intracerebral hemorrhage. Protonix 40 mg IV daily for stress ulcer prophylaxis. ACCESS: Peripheral IV's. Level 2 Physician Marily Ash MD Feb 17, 2016 16:29
--- NOTE | 2016-02-17 16:32 | PD.CONS ---
Provisional Diagnosis Admission Date Feb 16, 2016 at 01:40 [place] I. Neurocognitive disorder due CVA History of Present Illness Service Psychiatry Consult Requested By Primary Care Physician Parmjit Francisco MD HPI The patient is a 60-year-old man, with no psychiatric history, medical history of DM, HTN, the latter CVA, hospitalized this time due to left periatrial skinny stroke, consulted to psychiatry due to disorganized, aggressive behavior. Chart reviewed, case discussed with nurse in charge, no collateral information available. On psychiatric evaluation patient was found very irritable, verbally hostile, disorganized, refusing to cooperate with evaluation with the argument that he doesn't need a psychiatrist. He says that what he needs to do is to speak with his daughter and get out of this place "because you'll want to kill". Patient also say that he doesn't trust anybody here "I am not going to allow anybody to pull their hands on me". He is restraint in 2 poinst, disoriented in time person and place. As per nurse, patient has been agitated, combative, loud periodically. He has been redirectable, but very difficult to deal with. Review of Systems ROS Limitations: Uncooperative Past Family Social History Coded Allergies: No Known Allergies (Unverified , 02/16/16) No Active Prescriptions or Reported Meds Current Medications Medications (Trade) Dose Ordered Sig/[place] Route Start Time Stop Time Status Last Admin (NS Flush) 2 ml UNSCH PRN IV FLUSH 02/16/16 03:45 (NS Flush) 2 ml BID IV FLUSH 02/16/16 09:00 02/17/16 09:25 (Morphine Inj) 2 mg Q2H PRN IV 02/16/16 03:45 02/16/16 23:14 (Protonix Inj) 40 mg DAILY IV 02/16/16 09:00 02/17/16 09:24 (Zofran Inj) 4 mg Q6H PRN IV 02/16/16 03:45 02/17/16 09:24 Miscellaneous Information 1 [id number] XX 02/16/16 03:45 02/16/16 05:52 (Chlorhexidine 2% Cloth) 3 pack Taper DAILY@04 TOP 02/16/16 04:00 02/11/17 03:59 (Chlorhexidine 2% Cloth) 3 pack UNSCH PRN TOP 02/16/16 03:45 (D50w (Vial) Inj) 25 ml UNSCH PRN IV PUSH 02/16/16 03:45 Glucagon 1 mg 1 mg UNSCH PRN OTHER 02/16/16 03:45 (NS 1000 ml Inj) 1,000 ml @ 75 mls/hr [id number] IV 02/16/16 08:48 (Coumadin) 5 mg DAILY@1600 PO 02/16/16 16:00 02/16/16 16:06 (Trandate Inj) 10 mg Q1HR PRN IV PUSH 02/16/16 21:00 Hydralazine HCl 10 mg 10 mg Q1HR PRN IV PUSH 02/16/16 20:30 02/17/16 03:46 (Precedex Inj) 50 ml @ 0 mls/hr TITRATE IV 02/17/16 00:15 (Haldol Inj) 2 mg Q6H PRN IV 02/17/16 00:30 (Apresoline) 50 mg TID PO 02/17/16 09:00 02/17/16 09:24 Physical Exam Vital Signs Vital Signs Date Time Temp Pulse Resp B/P Pulse Ox O2 Delivery O2 Flow Rate FiO2 02/17/16 14:00 102 02/17/16 12:00 98.4 11 163/80 99 02/16/16 19:55 21 02/16/16 07:00 Nasal Cannula 2.00 I/O 02/16/16 02/16/16 02/17/16 08:00 16:00 00:00 Intake Total 959 ml 695 ml Output Total 600 ml 300 ml Balance 359 ml 395 ml Mental Status Examination Patient is on cooperative to complete MS Appearance man, age-appropriate, good hygiene, irritable, on cooperative, combative Speech: Rapid Orientation: Person Memory: Impaired (describe) Thought Process: Flight of Ideas, Loose Association Assessment & Plan Problem List: (1) 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 Chart reviewed, case discussed with nurse in charge, no collateral information available. On psychiatric evaluation patient was found very irritable, verbally hostile, disorganized, refusing to cooperate with evaluation with the argument that he doesn't need a psychiatrist. He says that what he needs to do is to speak with his daughter and get out of this place "because you'll want to kill". Patient also say that he doesn't trust anybody here "I am not going to allow anybody to pull their hands on me". He is restraint in 2 poinst, disoriented in time person and place. As per nurse, patient has been agitated, combative, loud periodically. He has been redirectable, but very difficult to deal with. This presentation seems to be secondary to his acute neurological condition, but an underlying difficult character structure is highly possible. Agree with Haldol 2 mg IM when necessary aggressive behavior and agitation, we'll start Seroquel 50 mg twice a day for behavioral control. Continue follow-up. ICD Code: G31.84 Assessment & Plan Estimated LOS: Shorty Boo MD Feb 17, 2016 16:32
[2016-02-17 18:21] LABS: ALBUMIN SPE 2.68 GM/DL (3.50-5.00); ALPHA 1 GLOBULIN 0.31 GM/DL (0.11-0.29); ALPHA 2 GLOBULIN 0.89 GM/DL (0.22-1.00)
[2016-02-17 19:00] LABS: AMPHETAMINE, URINE NEG (NEG); BARBITURATES, URINE NEG (NEG); COCAINE, URINE NEG (NEG)
[2016-02-17 19:01] LABS: BLOOD, URINE TRACE (NEG); COMMENT (UR) CULT NOT INDICATED; CULTURE IF INDICATED CULT NOT INDICATED; GLUCOSE,URINE 1000 mg/dL (NEG); HYALINE CAST, URINE 1 /lpf (RARE); KETONE, URINE 10 mg/dL (NEG); MUCUS URINE FEW /lpf (OCC); NITRITE,URINE NEG (NEG); SQUAMOUS EPITHELIAL CELL URINE <1 /hpf (0-5); URINE COLOR YELLOW (YELLW/STRAW)
[2016-02-17] MEDS: MORPHINE SULFATE 4 MG/ML INJ IV PRN (20:03)
[2016-02-17] MEDS: HALOPERIDOL LACTATE 5 MG/ML AMP IV PRN (20:18)
[2016-02-17] MEDS: DOCUSATE SODIUM 100 MG CAP PO SCH (21:00)
[2016-02-18] VITALS (13 sets, daily range): BP systolic 122–185; BP diastolic 63–92; PULSE 80–106; RESP 11–19; TEMP 97.6–98.3; O2SAT 95–98
[2016-02-18] MEDS: CHLORHEXIDINE GLUCONATE 2 % 1 PACK (2 CLOTHS) TOP SCH (04:00)
[2016-02-18] MEDS: INSULIN ASPART SUPPLEMENTAL SCALE SQ SCH ×4 (07:00→21:36)
[2016-02-18] MEDS: hydrALAZINE HCL 20 MG/ML VIAL IV PUSH PRN (08:02)
[2016-02-18] MEDS: HALOPERIDOL LACTATE 5 MG/ML AMP IV PRN (08:03)
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
[2016-02-18] MEDS: hydrALAZINE HCL 50 MG TAB PO SCH ×3 (08:56→17:11)
[2016-02-18] MEDS: SODIUM CHLORIDE 0.9% FLUSH 5 ML FLUSH IV FLUSH SCH ×2 (09:00→21:35)
[2016-02-18] MEDS: DOCUSATE SODIUM 100 MG CAP PO SCH ×2 (09:02→21:35)
[2016-02-18] MEDS: PANTOPRAZOLE SODIUM 40 MG VIAL IV SCH (09:02)
[2016-02-18] MEDS: QUEtiapine FUMARATE 25 MG TAB PO SCH ×2 (09:02→17:11)
[2016-02-18 10:36] LABS: MEAN CELL VOLUME 86.2 FL (80.0-100.0); MEAN CORPUSCULAR HEMOGLOBIN 29.2 PG (27.0-34.0); MEAN CORPUSCULAR HGB CONC 33.8 % (32.0-36.0); PLATELET COUNT 231 TH/MM3 (150-450); RED BLOOD COUNT 4.52 MIL/MM3 (4.50-5.90); RED CELL DISTRIBUTION WIDTH 13.6 % (11.6-17.2); REVIEW FLAG FINAL; WHITE BLOOD COUNT 9.8 TH/MM3 (4.0-11.0)
[2016-02-18 10:48] LABS: PROTHROMBIN TIME - PATIENT 11.2 SEC (9.8-11.6)
[2016-02-18 10:56] LABS: BICARBONATE 22.4 MEQ/L (21.0-32.0); POTASSIUM 3.9 MEQ/L (3.5-5.1)
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
[2016-02-18] MEDS ORDERED: HALOPERIDOL LACTATE 5 MG/ML AMP IV PRN (12:30)
--- NOTE | 2016-02-18 13:00 | HHI.PR ---
Subjective Remarks The patient was relatively sedated. He seemed comfortable. Nursing was at the bedside. The patient was unable to explain his symptoms at this time. Objective Vitals Vital Signs Date Time Temp Pulse Resp B/P Pulse Ox O2 Delivery O2 Flow Rate FiO2 02/18/16 10:00 98 02/18/16 08:00 98.0 106 18 185/91 96 02/18/16 08:00 106 02/18/16 08:00 98 02/18/16 06:00 80 02/18/16 04:00 98.3 83 12 175/92 98 02/18/16 04:00 83 02/18/16 02:00 81 02/18/16 00:00 95 02/18/16 00:00 98.0 95 18 162/77 97 02/17/16 22:00 92 02/17/16 20:00 98.2 122 24 184/106 100 02/17/16 20:00 122 02/17/16 18:00 104 02/17/16 16:00 98.0 103 11 149/73 99 02/17/16 16:00 104 02/17/16 14:00 102 I/O 02/17/16 02/17/16 02/17/16 02/18/16 02/18/16 02/18/16 07:00 15:00 23:00 07:00 15:00 23:00 Intake Total 569 ml 1020 ml 250 ml 750 ml Output Total 775 ml 650 ml 400 ml 250 ml Balance -206 ml 370 ml -150 ml 500 ml Intake Oral 420 ml 250 ml 750 ml IV Total 569 ml 600 ml Output Urine Total 325 ml 550 ml 400 ml 250 ml Emesis 450 ml 100 ml # Voids 3 4 # Bowel Movements 0 Result Diagram: 02/18/16 1000 02/18/16 1000 Imaging Last Impressions Head CT 02/17/16 0000 Signed Impressions: Service Date/Time: Wednesday, February 17, 2016 00:45 - CONCLUSION: Stable left parietal infarction. Alex Carbone Jr., MD Brain MRI 02/16/16 0043 Signed Impressions: Service Date/Time: Tuesday, February 16, 2016 03:47 - CONCLUSION: 1. Acute infarction involving left parietal lobe posteriorly. Tiny foci of signal abnormality consistent with blood product within this area of stroke. 2. Atrophy and chronic small vessel ischemic change. Alex Carbone Jr., MD ADDENDUM: In addition to the left sided acute infarct, there is a focus of restricted diffusion identified on the right, a sub-insular external capsule region also characteristic of an area of acute infarction.. Tree Haro MD Neck Magnetic Resonance Angiography 02/16/16 0000 Signed Impressions: Service Date/Time: Tuesday, February 16, 2016 03:47 - CONCLUSION: 1. Patent carotid arteries and vertebral arteries. Alex Carbone Jr., MD Head Magnetic Resonance Angiography 02/16/16 0000 Signed Impressions: Service Date/Time: Tuesday, February 16, 2016 03:47 - CONCLUSION: Normal examination. Alex Carbone Jr., MD Objective Remarks GENERAL: Well-nourished, well-developed pt appearing lethargic. In restraints. SKIN: Warm and dry. HEAD: Atraumatic. Normocephalic. EYES: Pupils equal and round, 3mm reactive. No scleral icterus. No injection or drainage. ENT: No nasal bleeding or discharge. Mucous membranes pink and moist. NECK: Trachea midline. No JVD. CARDIOVASCULAR: Regular rate and rhythm. No murmurs rubs or gallops. No sternotomy scar RESPIRATORY: No accessory muscle use. Clear to auscultation. Breath sounds equal bilaterally. On room air GASTROINTESTINAL: Abdomen soft, non-tender, nondistended. Vertical abdominal incision well healed. MUSCULOSKELETAL: Extremities without clubbing, cyanosis, or edema. No obvious deformities. NEUROLOGICAL: Moves extremities 4, alert and oriented to self . No obvious cranial nerve deficits. Unable to cooperate with neurological examination. Medications and IVs Current Medications Medications (Trade) Dose Ordered Sig/Ceasar Route Start Time Stop Time Status Last Admin (NS Flush) 2 ml UNSCH PRN IV FLUSH 02/16/16 03:45 (NS Flush) 2 ml BID IV FLUSH 02/16/16 09:00 02/18/16 09:00 (Morphine Inj) 2 mg Q2H PRN IV 02/16/16 03:45 02/16/16 23:14 (Protonix Inj) 40 mg DAILY IV 02/16/16 09:00 02/18/16 09:02 (Zofran Inj) 4 mg Q6H PRN IV 02/16/16 03:45 02/17/16 09:24 Miscellaneous Information 1 Q361D XX 02/16/16 03:45 02/16/16 05:52 (Chlorhexidine 2% Cloth) 3 pack Taper DAILY@04 TOP 02/16/16 04:00 02/11/17 03:59 (Chlorhexidine 2% Cloth) 3 pack UNSCH PRN TOP 02/16/16 03:45 (D50w (Vial) Inj) 25 ml UNSCH PRN IV PUSH 02/16/16 03:45 (Glucagon Inj) 1 mg UNSCH PRN OTHER 02/16/16 03:45 (Coumadin) 5 mg DAILY@1600 PO 02/16/16 16:00 02/16/16 16:06 (Trandate Inj) 10 mg Q1HR PRN IV PUSH 02/16/16 21:00 (Apresoline Inj) 10 mg Q1HR PRN IV PUSH 02/16/16 20:30 02/18/16 08:02 (Apresoline) 50 mg TID PO 02/17/16 09:00 02/17/16 16:34 (SEROquel) 50 mg BID@09,12 PO 02/18/16 09:00 02/18/16 09:02 (Colace) 100 mg BID PO 02/17/16 21:00 02/18/16 09:02 (Haldol Inj) 5 mg Q12HR PRN IV 02/18/16 21:00 A/P Assessment and Plan Acute CVA L parietal ischemic stroke with small petechial hemorrhagic conversion. MRI L parietal stroke with tiny foci of hemorrhage. Echo with grade 1 diastolic dysfunction. Carotids without stenosis. Neurosurgery and neurology consults appreciated. - Coumadin started per neurology as risk of recurrent CVA outweighs risk of bleeding. - PT/OT/ST. Will likely need rehab. - Follow up results of immunological studies, and prothrombin gene mutation study. Hypertension Uncontrolled. - hydralazine started. Add amlodipine 02/18/16. - labetalol as needed. Agitation Psychiatry consult appreciated. - meds per psychiatry. Haldol as needed. REED vs ? chronic kidney disease Creatinine elevated. - Follow-up BMP. - avoid nephrotoxic agents. - nephrology consult pending. Diabetes mellitus Glucose relatively well controlled at this time. - Medium dose insulin sliding scale ac/hs. PROPH: SCDs/teds, Coumadin. Discharge Planning Awaiting clinical improvement. Ismael Jerome DO Feb 18, 2016 13:00
--- NOTE | 2016-02-18 14:07 | EKG ---
Date Performed: 02/18/2016 Time Performed: 12:32:09 PTAGE: 60 years EKG: Sinus rhythm Nonspecific ST-T wave changes ABNORMAL ECG NO PREVIOUS TRACING DOCTOR: Ed Molina Interpretating Date/Time 02/18/2016 14:05:51
[2016-02-18 15:06] LABS: ANA SCREEN NEG (NEG)
[2016-02-18] MEDS: WARFARIN SOD 5 MG TAB PO SCH (17:11)
--- NOTE | 2016-02-18 18:04 | PD.CONS ---
HPI Service Nephrology Consult Requested By Reason for Consult Renal insufficiency Primary Care Physician Parmjit Francisco MD History of Present Illness THe patient is a 60 yo male who was transferred to this facility from [facility] in [place] for new onset stroke. He is very agitated and had to be restrained yesterday. Daughters present in room and endorse that he is a very noncompliant patient. He does not have a PCP and goes to the ED at [facility] for care. He is a long stand diabetic and does not regularly use his medications. There is mention of diabetic retinopathy and diabetic neuropathy in his charts. The patient himself denies any known renal insufficiency, but there was a lab drawn at [facility] in Oct 2015 that showed a SCr of 2.52. Labs from [facility] showed SCr at 2.51 that improved to 2.34 on admission. UA is positive for heavy proteinuria. (Jocelyn Manzanares) Review of Systems ROS Limitations: Uncooperative (Jocelyn Manzanares) Past Family Social History Allergies: Coded Allergies: No Known Allergies (Unverified , 02/16/16) Past Medical History CVA DM with reported retinopathy and neuropathy HTN HLD DDD Hx of Colon Ca Past Surgical History Partial colectomy Reported Medications Reported Meds & Active Scripts Active No Active Prescriptions or Reported Medications Active Ordered Medications Current Medications Medications (Trade) Dose Ordered Sig/Ceasar Route Start Time Stop Time Status Last Admin (NS Flush) 2 ml UNSCH PRN IV FLUSH 02/16/16 03:45 (NS Flush) 2 ml BID IV FLUSH 02/16/16 09:00 02/18/16 09:00 (Morphine Inj) 2 mg Q2H PRN IV 02/16/16 03:45 02/16/16 23:14 (Protonix Inj) 40 mg DAILY IV 02/16/16 09:00 02/18/16 09:02 (Zofran Inj) 4 mg Q6H PRN IV 02/16/16 03:45 02/17/16 09:24 Miscellaneous Information 1 Q361D XX 02/16/16 03:45 02/16/16 05:52 (Chlorhexidine 2% Cloth) 3 pack Taper DAILY@04 TOP 02/16/16 04:00 02/11/17 03:59 (Chlorhexidine 2% Cloth) 3 pack UNSCH PRN TOP 02/16/16 03:45 (D50w (Vial) Inj) 25 ml UNSCH PRN IV PUSH 02/16/16 03:45 (Glucagon Inj) 1 mg UNSCH PRN OTHER 02/16/16 03:45 (Coumadin) 5 mg DAILY@1600 PO 02/16/16 16:00 02/18/16 17:11 (Trandate Inj) 10 mg Q1HR PRN IV PUSH 02/16/16 21:00 (Apresoline Inj) 10 mg Q1HR PRN IV PUSH 02/16/16 20:30 02/18/16 08:02 (Apresoline) 50 mg TID PO 02/17/16 09:00 02/18/16 17:11 (SEROquel) 50 mg BID@09,12 PO 02/18/16 09:00 02/18/16 17:11 (Colace) 100 mg BID PO 02/17/16 21:00 02/18/16 09:02 (Haldol Inj) 5 mg Q12HR PRN IV 02/18/16 21:00 (Norvasc) 10 mg DAILY PO 02/18/16 13:00 Family History Not able to obtain Social History Non smoker Denies EtOH Lives alone (Jocelyn Manzanares) Physical Exam Vital Signs Vital Signs Date Time Temp Pulse Resp B/P Pulse Ox O2 Delivery O2 Flow Rate FiO2 02/18/16 14:00 85 02/18/16 12:00 94 02/18/16 12:00 98.3 90 11 122/67 95 02/18/16 10:00 98 02/18/16 08:00 98.0 106 18 185/91 96 02/18/16 08:00 106 02/18/16 08:00 98 02/18/16 06:00 80 02/18/16 04:00 98.3 83 12 175/92 98 02/18/16 04:00 83 02/18/16 02:00 81 02/18/16 00:00 95 02/18/16 00:00 98.0 95 18 162/77 97 02/17/16 22:00 92 02/17/16 20:00 98.2 122 24 184/106 100 02/17/16 20:00 122 Physical Exam GENERAL: Laying in bed with eyes closed. Has 4-point restraints on. 2 daughters present in room. SKIN: Warm and dry. HEAD: Atraumatic. Normocephalic. EYES: Pupils equal and round. No scleral icterus. No injection or drainage. ENT: No nasal bleeding or discharge. Mucous membranes pink and moist. NECK: Trachea midline. No JVD. CARDIOVASCULAR: Regular rate and rhythm. RESPIRATORY: No accessory muscle use. Clear to auscultation. Breath sounds equal bilaterally. GASTROINTESTINAL: Abdomen soft, non-tender, nondistended. Hepatic and splenic margins not palpable. MUSCULOSKELETAL: Extremities without clubbing, cyanosis, or edema. No obvious deformities. NEUROLOGICAL: Awake and alert. Normal speech. PSYCHIATRIC: Inappropriate mood and affect; insight and judgment abnormal. Laboratory Laboratory Tests Test 02/17/16 02/18/16 18:15 10:00 Urine Color YELLOW Urine Turbidity CLEAR Urine pH 6.0 Urine Specific [place] 1.015 Urine Protein 300 Urine Glucose (UA) 1000 Urine Ketones 10 Urine Occult Blood TRACE Urine Nitrite NEG Urine Bilirubin NEG Urine Urobilinogen LESS THAN 2.0 Urine Leukocyte Esterase NEG Urine RBC LESS THAN 1 Urine WBC 2 Urine Squamous Epithelial <1 Cells Urine Hyaline Casts 1 Urine Mucus FEW Microscopic Urinalysis Comment CULT NOT INDICATED Urine Opiates Screen POS Urine Barbiturates Screen NEG Urine Amphetamines Screen NEG Urine Benzodiazepines Screen POS Urine Cocaine Screen NEG Urine Cannabinoids Screen NEG White Blood Count 9.8 Red Blood Count 4.52 Hemoglobin 13.2 Hematocrit 39.0 Mean Corpuscular Volume 86.2 Mean Corpuscular Hemoglobin 29.2 Mean Corpuscular Hemoglobin 33.8 Concent Red Cell Distribution Width 13.6 Platelet Count 231 Mean Platelet Volume 8.3 Prothrombin Time 11.2 Prothromb Time International 1.0 Ratio Sodium Level 141 Potassium Level 3.9 Chloride Level 109 Carbon Dioxide Level 22.4 Anion Gap 10 Blood Urea Nitrogen 15 Creatinine 2.57 Estimat Glomerular Filtration 26 Rate Random Glucose 165 Calcium Level 8.5 Phosphorus Level 2.7 Magnesium Level 2.0 (Jocelyn Manzanares) Result Diagram: 02/18/16 1000 02/18/16 1000 Imaging Last Impressions Head CT 02/17/16 0000 Signed Impressions: Service Date/Time: Wednesday, February 17, 2016 00:45 - CONCLUSION: Stable left parietal infarction. Alex Carbone Jr., MD Brain MRI 02/16/16 0043 Signed Impressions: Service Date/Time: Tuesday, February 16, 2016 03:47 - CONCLUSION: 1. Acute infarction involving left parietal lobe posteriorly. Tiny foci of signal abnormality consistent with blood product within this area of stroke. 2. Atrophy and chronic small vessel ischemic change. Alex Carbone Jr., MD ADDENDUM: In addition to the left sided acute infarct, there is a focus of restricted diffusion identified on the right, a sub-insular external capsule region also characteristic of an area of acute infarction.. Tree Haro MD Neck Magnetic Resonance Angiography 02/16/16 0000 Signed Impressions: Service Date/Time: Tuesday, February 16, 2016 03:47 - CONCLUSION: 1. Patent carotid arteries and vertebral arteries. Alex Carbone Jr., MD Head Magnetic Resonance Angiography 02/16/16 Signed Impressions: Service Date/Time: Tuesday, February 16, 2016 03:47 - CONCLUSION: Normal examination. Alex Carbone Jr., MD (Jocelyn Manzanares) Assessment and Plan Problem List: (1) Chronic renal disease, stage 4, severely decreased glomerular filtration rate (GFR) between 15-29 mL/min/1.73 square meter Plan: We do not have many labs to go by, but appears that baseline SCr around 2.5 at least since Oct 2015 according to lab drawn at [facility]. Given his longstanding DM and HTN, it is likely that this is his baseline. He does have heavy proteinuria which we will attempt to quantify by 24h urine collection. Has condom cath, so might be difficult to get. Check UPCR as well. Will also check renal US to assess renal parenchyma. Discussed compliance with the patient. His daughters are present and are also trying to help get the patient on board with taking care of himself. He appears to have very little insight into his healthcare. We will see the patient intermittently. (2) Uncontrolled diabetes mellitus Plan: Mgmt as per primary team (3) Hypertension Plan: Will defer HTN management to CC and neurology at the present given his recent stroke. (4) Cerebral infarction, associated with systemic hypoxia or ischemia, acute Plan: As above (5) Noncompliance (Jocelyn Manzanares) Assessment and Plan The exam, history, and the medical decision-making described in the above note were completed with the assistance of the PASuleman. I reviewed and agree with the findings presented. I attest that I had a [id number] encounter with the patient on the same day, and personally performed and documented my assessment and findings in the medical record. (Debbie Rosales MD) Jocelyn Manzanares Feb 18, 2016 18:04 Debbie Rosales MD Feb 19, 2016 16:15
--- NOTE | 2016-02-18 22:50 | RADRPT ---
EXAM DATE/TIME: 02/18/2016 22:15 [place] COMPARISON: No previous studies available for comparison. INDICATIONS : Increased BUN and creatinine. MEDICAL HISTORY : Carcinoma, colon. Cerebrovascular accident. Heart attack. Hypertension. Paresthesia. Diabetes. Ma rijuana use. SURGICAL HISTORY : Colon cancer surgery. ENCOUNTER: Initial ACUITY: 1 day PAIN SCORE: 0/10 LOCATION: Bilateral flank MEASUREMENTS: RIGHT KIDNEY: 10.8 x 5.2 x 5.4 cm LEFT KIDNEY: 10.5 x 5.6 x 5.6 cm FINDINGS: RIGHT KIDNEY: Renal cortex is normal in thickness and increase in echotexture. No hydronephrosis, stone, or mass. LEFT KIDNEY: Renal cortex is normal in thickness and increase in echotexture. No hydronephrosis, stone, or mass. Tiny simple cyst lower pole measures 7 x 7 x 5 mm. BLADDER: Within normal limits given the degree of distension. CONCLUSION: 1. Echogenic kidneys which can be seen with medical renal disease. 2. Tiny left renal cyst. Christopher Greer MD on February 18, 2016 at 22:48 Board Certified Radiologist. This report was verified electronically.
[2016-02-19] VITALS (12 sets, daily range): BP systolic 157–186; BP diastolic 79–90; PULSE 82–118; RESP 13–39; TEMP 97.6–98.3; O2SAT 96–99
[2016-02-19 03:55] LABS: THROMBIN TIME FOR LA ND sec (13-19)
[2016-02-19] MEDS: hydrALAZINE HCL 20 MG/ML VIAL IV PUSH PRN ×2 (04:34→22:44)
[2016-02-19] MEDS: CHLORHEXIDINE GLUCONATE 2 % 1 PACK (2 CLOTHS) TOP SCH (05:05)
[2016-02-19 05:14] LABS: HEMATOCRIT 40.2 % (39.0-51.0); MEAN CELL VOLUME 86.3 FL (80.0-100.0); MEAN CORPUSCULAR HEMOGLOBIN 29.2 PG (27.0-34.0); MEAN CORPUSCULAR HGB CONC 33.8 % (32.0-36.0); PLATELET COUNT 233 TH/MM3 (150-450); RED BLOOD COUNT 4.66 MIL/MM3 (4.50-5.90); RED CELL DISTRIBUTION WIDTH 13.9 % (11.6-17.2); REVIEW FLAG FINAL; WHITE BLOOD COUNT 9.8 TH/MM3 (4.0-11.0)
[2016-02-19 05:22] LABS: PROTHROMBIN TIME - PATIENT 10.9 SEC (9.8-11.6)
[2016-02-19 05:30] LABS: BICARBONATE 24.9 MEQ/L (21.0-32.0); MAGNESIUM 2.3 MG/DL (1.5-2.5)
[2016-02-19] MEDS: INSULIN ASPART SUPPLEMENTAL SCALE SQ SCH ×4 (07:00→21:49)
--- NOTE | 2016-02-19 08:13 | HHI.PR ---
Subjective Remarks sr Objective Vital Signs Date Time Temp Pulse Resp B/P Pulse Ox O2 Delivery O2 Flow Rate FiO2 02/19/16 06:00 114 02/19/16 04:00 97.9 90 13 186/90 98 02/19/16 04:00 90 02/19/16 02:00 82 02/19/16 00:00 97.7 87 26 161/79 96 02/19/16 00:00 87 02/18/16 22:00 90 02/18/16 21:00 90 02/18/16 20:00 97.6 85 11 134/63 98 02/18/16 20:00 81 02/18/16 18:00 88 02/18/16 16:00 98.0 102 19 167/78 96 02/18/16 14:00 85 02/18/16 12:00 94 02/18/16 12:00 98.3 90 11 122/67 95 02/18/16 10:00 98 I/O 02/18/16 02/18/16 02/18/16 02/19/16 02/19/16 02/19/16 07:00 15:00 23:00 07:00 15:00 23:00 Intake Total 750 ml 340 ml 720 ml 480 ml Output Total 250 ml 250 ml 250 ml 550 ml Balance 500 ml 90 ml 470 ml -70 ml Intake Oral 750 ml 340 ml 720 ml 480 ml Output Urine Total 250 ml 250 ml 250 ml 550 ml # Bowel Movements 0 Result Diagram: 02/19/16 0424 02/19/16 0424 Objective Remarks alert and awake vff moves all well is in good mood names ok Assessment and Plan Assessment and Plan there is some petechial blood in the infarct but with bilat cva at risk for new cva fu hypercoag screen and holter still pend echo neg ldl inc but statin can inc risk of bleeding and starting coumadin so will hold on statin for 2 months and start then trop neg i dw joseline daughter and described risk of bleeding into brain even from coumadin and already some small blood in left infarct but theat if not on anticoagulation at risk for more cva likely embolic she agrees to go ahead with coumadin n he needs to get oob with PT got his coumadin last noc much better watch inr ? ok to floor tele Walt Peterson MD Feb 19, 2016 08:13
[2016-02-19] MEDS: QUEtiapine FUMARATE 25 MG TAB PO SCH ×2 (08:33→12:20)
[2016-02-19] MEDS: PANTOPRAZOLE SODIUM 40 MG VIAL IV SCH (08:33)
[2016-02-19] MEDS: DOCUSATE SODIUM 100 MG CAP PO SCH ×2 (08:34→21:48)
[2016-02-19] MEDS: SODIUM CHLORIDE 0.9% FLUSH 5 ML FLUSH IV FLUSH SCH ×2 (08:35→21:48)
[2016-02-19] MEDS: hydrALAZINE HCL 50 MG TAB PO SCH ×3 (08:35→17:40)
[2016-02-19] MEDS ORDERED: WARFARIN SOD 7.5 MG TAB PO SCH (16:00)
--- NOTE | 2016-02-19 16:30 | HHI.NPPN ---
Subjective History of Present Illness THe patient is a 60 yo male who was transferred to this facility from [facility] in [place] for new onset stroke. He is very agitated and had to be restrained yesterday. Daughters present in room and endorse that he is a very noncompliant patient. He does not have a PCP and goes to the ED at [facility] for care. He is a long stand diabetic and does not regularly use his medications. There is mention of diabetic retinopathy and diabetic neuropathy in his charts. The patient himself denies any known renal insufficiency, but there was a lab drawn at [facility] in Oct 2015 that showed a SCr of 2.52. Labs from [facility] showed SCr at 2.51 that improved to 2.34 on admission. Interval History Patient appears more alert. No verbal complaints currently. Nurse indicated that his fluid intake has improved as compared to yesterday. Objective Data Data 02/18/16 02/19/16 19:00 07:00 Intake Total 340 ml 1200 ml Output Total 250 ml 800 ml Balance 90 ml 400 ml Intake Oral 340 ml 1200 ml Output Urine Total 250 ml 800 ml # Bowel Movements 0 Vital Signs Date Time Temp Pulse Resp B/P Pulse Ox O2 Delivery O2 Flow Rate FiO2 02/19/16 16:00 96 02/19/16 14:00 111 02/19/16 12:00 118 02/19/16 12:00 109 16 157/79 96 02/19/16 10:00 118 02/19/16 08:00 98.3 108 16 98 02/19/16 08:00 88 02/19/16 06:00 114 02/19/16 04:00 97.9 90 13 186/90 98 02/19/16 04:00 90 02/19/16 02:00 82 02/19/16 00:00 97.7 87 26 161/79 96 02/19/16 00:00 87 02/18/16 22:00 90 02/18/16 21:00 90 02/18/16 20:00 97.6 85 11 134/63 98 02/18/16 20:00 81 02/18/16 18:00 88 -: 02/19/16 0424 02/19/16 0424 Physical Exam General Appearance: Well Developed, Well Nourished, No Acute Distress, Comfortable Eyes Eye Exam: Sclera White Neck Neck Exam: Trachea Midline Pulmonary Resp Exam: Clear Bilaterally, Breath Sounds Equal, No Distress Cardiology CV Exam: Regular, Normal Sinus Rhythm, Good Perfusion Gastrointestinal/Abdomen GI Exam: Soft, Non-Tender Genitourinary Exam: Clear Urine Extremeties Extremities Exam: No Edema Neurologic Neuro Exam: Alert, Awake, Speech Clear Assessment/Plan Discussed Condition With: Patient Problem List: (1) Chronic renal disease, stage 4, severely decreased glomerular filtration rate (GFR) between 15-29 mL/min/1.73 square meter Plan: Patient's creatinine level has risen somewhat since yesterday. As indicated above the patient's oral intake of fluid apparently was not too good yesterday but improved today. Hopefully the creatinine level will stabilize. BMP a.m. I discussed with patient importance of diabetic control Progression of his kidney disease and of the need to establish with an outpatient coordinate measuring machine technician when he returns home [facility]. Patient has shown poor insight previously as per family in regard to his medical care and hopefully this will improve. He was advised that if he does not improve medical compliance he will likely progress to end-stage renal disease prematurely with requirement for dialytic support. We do not have many labs to go by, but appears that baseline SCr around 2.5 at least since Oct 2015 according to lab drawn at [facility]. Given his longstanding DM and HTN, it is likely that this is his baseline. We will continue to see the patient intermittently. (2) Uncontrolled diabetes mellitus Plan: Mgmt as per primary team (3) Hypertension Plan: Will defer HTN management to CC and neurology at the present given his recent stroke. (4) Cerebral infarction, associated with systemic hypoxia or ischemia, acute Plan: As above (5) Noncompliance Debbie Rosales MD Feb 19, 2016 16:30
--- NOTE | 2016-02-19 16:32 | HHI.PR ---
Subjective Remarks The patient was awake, alert and cooperative. He had no acute complaints. He knew that he had a stroke. He said that his legs were weak. Nursing was at the bedside. Objective Vitals Vital Signs Date Time Temp Pulse Resp B/P Pulse Ox O2 Delivery O2 Flow Rate FiO2 02/19/16 16:00 96 02/19/16 14:00 111 02/19/16 12:00 118 02/19/16 12:00 109 16 157/79 96 02/19/16 10:00 118 02/19/16 08:00 98.3 108 16 98 02/19/16 08:00 88 02/19/16 06:00 114 02/19/16 04:00 97.9 90 13 186/90 98 02/19/16 04:00 90 02/19/16 02:00 82 02/19/16 00:00 97.7 87 26 161/79 96 02/19/16 00:00 87 02/18/16 22:00 90 02/18/16 21:00 90 02/18/16 20:00 97.6 85 11 134/63 98 02/18/16 20:00 81 02/18/16 18:00 88 I/O 02/18/16 02/18/16 02/18/16 02/19/16 02/19/16 02/19/16 07:00 15:00 23:00 07:00 15:00 23:00 Intake Total 750 ml 340 ml 720 ml 480 ml 600 ml Output Total 250 ml 250 ml 250 ml 550 ml 500 ml Balance 500 ml 90 ml 470 ml -70 ml 100 ml Intake Oral 750 ml 340 ml 720 ml 480 ml 600 ml Output Urine Total 250 ml 250 ml 250 ml 550 ml 500 ml # Bowel Movements 0 1 Result Diagram: 02/19/16 0424 02/19/16 0424 Imaging Last Impressions Renal Ultrasound 02/18/16 0000 Signed Impressions: Service Date/Time: Thursday, February 18, 2016 22:15 - CONCLUSION: 1. Echogenic kidneys which can be seen with medical renal disease. 2. Tiny left renal cyst. Christopher Greer MD Head CT 02/17/16 0000 Signed Impressions: Service Date/Time: Wednesday, February 17, 2016 00:45 - CONCLUSION: Stable left parietal infarction. Alex Carbone Jr., MD Brain MRI 02/16/16 0043 Signed Impressions: Service Date/Time: Tuesday, February 16, 2016 03:47 - CONCLUSION: 1. Acute infarction involving left parietal lobe posteriorly. Tiny foci of signal abnormality consistent with blood product within this area of stroke. 2. Atrophy and chronic small vessel ischemic change. Alex Carbone Jr., MD ADDENDUM: In addition to the left sided acute infarct, there is a focus of restricted diffusion identified on the right, a sub-insular external capsule region also characteristic of an area of acute infarction.. Tree Haro MD Neck Magnetic Resonance Angiography 02/16/16 0000 Signed Impressions: Service Date/Time: Tuesday, February 16, 2016 03:47 - CONCLUSION: 1. Patent carotid arteries and vertebral arteries. Alex Carbone Jr., MD Head Magnetic Resonance Angiography 02/16/16 0000 Signed Impressions: Service Date/Time: Tuesday, February 16, 2016 03:47 - CONCLUSION: Normal examination. Alex Carbone Jr., MD Objective Remarks GENERAL: Well-nourished, well-developed pt appearing lethargic. In restraints. SKIN: Warm and dry. HEAD: Atraumatic. Normocephalic. EYES: Pupils equal and round, 3mm reactive. No scleral icterus. No injection or drainage. ENT: No nasal bleeding or discharge. Mucous membranes pink and moist. NECK: Trachea midline. No JVD. CARDIOVASCULAR: Regular rate and rhythm. No murmurs rubs or gallops. No sternotomy scar RESPIRATORY: No accessory muscle use. Clear to auscultation. Breath sounds equal bilaterally. On room air GASTROINTESTINAL: Abdomen soft, non-tender, nondistended. Vertical abdominal incision well healed. MUSCULOSKELETAL: Extremities without clubbing, cyanosis, or edema. No obvious deformities. NEUROLOGICAL: Moves extremities 4, alert and oriented to self . No obvious cranial nerve deficits. Strength 3/5 in lower extremities, 4/5 in upper extremities. PSYCH: Mood and affect appropriate. Medications and IVs Current Medications Medications (Trade) Dose Ordered Sig/Ceasar Route Start Time Stop Time Status Last Admin (NS Flush) 2 ml UNSCH PRN IV FLUSH 02/16/16 03:45 (NS Flush) 2 ml BID IV FLUSH 02/16/16 09:00 02/19/16 08:35 (Morphine Inj) 2 mg Q2H PRN IV 02/16/16 03:45 02/16/16 23:14 (Protonix Inj) 40 mg DAILY IV 02/16/16 09:00 02/19/16 08:33 (Zofran Inj) 4 mg Q6H PRN IV 02/16/16 03:45 02/17/16 09:24 Miscellaneous Information 1 Q361D XX 02/16/16 03:45 02/16/16 05:52 (Chlorhexidine 2% Cloth) 3 pack Taper DAILY@04 TOP 02/16/16 04:00 02/11/17 03:59 02/19/16 05:05 (Chlorhexidine 2% Cloth) 3 pack UNSCH PRN TOP 02/16/16 03:45 (D50w (Vial) Inj) 25 ml UNSCH PRN IV PUSH 02/16/16 03:45 (Glucagon Inj) 1 mg UNSCH PRN OTHER 02/16/16 03:45 (Trandate Inj) 10 mg Q1HR PRN IV PUSH 02/16/16 21:00 (Apresoline Inj) 10 mg Q1HR PRN IV PUSH 02/16/16 20:30 02/19/16 04:34 (Apresoline) 50 mg TID PO 02/17/16 09:00 02/19/16 12:20 (SEROquel) 50 mg BID@09,12 PO 02/18/16 09:00 02/19/16 12:20 (Colace) 100 mg BID PO 02/17/16 21:00 02/19/16 08:34 (Haldol Inj) 5 mg Q12HR PRN IV 02/18/16 21:00 Amlodipine Besylate 10 mg 10 mg DAILY PO 02/18/16 13:00 02/19/16 08:34 (Coumadin Consult Pharmacy) 0 ml @ 0 mls/hr UNSCH OTHER 02/19/16 15:45 (Coumadin) 7.5 mg DAILY@16 PO 02/19/16 16:00 A/P Assessment and Plan Acute CVA/ metabolic encephalopathy L parietal ischemic stroke with small petechial hemorrhagic conversion. MRI L parietal stroke with tiny foci of hemorrhage. Echo with grade 1 diastolic dysfunction. Carotids without stenosis. Neurosurgery and neurology consults appreciated. Mental status improved 02/18. - Coumadin started per neurology as risk of recurrent CVA outweighs risk of bleeding. - PT/OT/ST. Will likely need rehab. - Follow up results of immunological studies, and prothrombin gene mutation study. Hypertension Blood pressure improved 02/18. - hydralazine started. Added amlodipine 02/18/16. - labetalol as needed. Agitation Psychiatry consult appreciated. Agitation largely improved 02/18. - meds per psychiatry. Haldol as needed. REED vs ? chronic kidney disease Creatinine elevated. Appreciate nephrology consult. - Follow-up BMP. - avoid nephrotoxic agents. Diabetes mellitus Glucose fluctuates. - Medium dose insulin sliding scale ac/hs. Added Levemir 02/18. PROPH: SCDs/teds, Coumadin. Discharge Planning Transfer to the floor. Ismael Jerome DO Feb 19, 2016 16:32
[2016-02-19] MEDS: CHOLECALCIFEROL (VIT D3) 1000 UNIT TAB PO SCH (17:00)
[2016-02-19] MEDS ORDERED: INSULIN DETEMIR 100 UNITS/ML VIAL SQ SCH (21:00)
[2016-02-20] VITALS (12 sets, daily range): BP systolic 133–187; BP diastolic 70–91; PULSE 86–100; RESP 16–30; TEMP 97.8–98.8; O2SAT 97–99
[2016-02-20] MEDS: hydrALAZINE HCL 20 MG/ML VIAL IV PUSH PRN ×2 (00:40→05:20)
[2016-02-20 04:16] LABS: INTERNATIONAL NORMALIZED RATIO 1.1 RATIO; PROTHROMBIN TIME - PATIENT 12.7 SEC (9.8-11.6)
[2016-02-20 04:46] LABS: BICARBONATE 24.6 MEQ/L (21.0-32.0); MAGNESIUM 2.3 MG/DL (1.5-2.5); POTASSIUM 4.1 MEQ/L (3.5-5.1)
[2016-02-20] MEDS: CHLORHEXIDINE GLUCONATE 2 % 1 PACK (2 CLOTHS) TOP SCH (04:56)
[2016-02-20] MEDS: INSULIN ASPART SUPPLEMENTAL SCALE SQ SCH ×4 (07:01→22:46)
--- NOTE | 2016-02-20 08:44 | HHI.PR ---
Subjective Remarks sr Objective Vital Signs Date Time Temp Pulse Resp B/P Pulse Ox O2 Delivery O2 Flow Rate FiO2 02/20/16 06:00 98 02/20/16 04:00 94 02/20/16 04:00 98.0 94 21 167/91 98 02/20/16 02:00 89 02/20/16 00:00 97.9 100 30 187/88 97 02/20/16 00:00 100 02/19/16 22:00 90 02/19/16 20:00 97.6 94 39 169/88 99 02/19/16 20:00 89 02/19/16 18:00 107 02/19/16 16:00 96 02/19/16 16:00 97.7 103 16 170/83 96 02/19/16 14:00 111 02/19/16 12:00 118 02/19/16 12:00 109 16 157/79 96 02/19/16 10:00 118 I/O 02/19/16 02/19/16 02/19/16 02/20/16 02/20/16 02/20/16 07:00 15:00 23:00 07:00 15:00 23:00 Intake Total 480 ml 600 ml 480 ml 480 ml Output Total 550 ml 500 ml 700 ml 1100 ml Balance -70 ml 100 ml -220 ml -620 ml Intake Oral 480 ml 600 ml 480 ml 480 ml Output Urine Total 550 ml 500 ml 700 ml 1100 ml # Bowel Movements 1 Result Diagram: 02/19/16 0424 02/20/16 0341 Objective Remarks alert and awake vff moves all well is in good mood names ok no change Assessment and Plan Assessment and Plan there is some petechial blood in the infarct but with bilat cva at risk for new cva fu hypercoag screen and holter still pend echo neg ldl inc but statin can inc risk of bleeding and starting coumadin so will hold on statin for 2 months and start then trop neg i dw joseline daughter and described risk of bleeding into brain even from coumadin and already some small blood in left infarct but theat if not on anticoagulation at risk for more cva likely embolic she agrees to go ahead with coumadin n he needs to get oob with PT got his coumadin last noc much better watch inr ? ok to floor tele 02/20/16 stable neuro ok to floor oob please do not overshoot inr with blood in infarct be careful of dose over 5mg here to start i will fu tuesday Walt Peterson MD Feb 20, 2016 08:44
--- NOTE | 2016-02-20 08:56 | HHI.PYPN ---
Subjective Remarks Patient was seen today for reevaluation, he is his affect, mood and behavior are significantly improved, patient is able to sustain a conversation and cooperative, less irritable, sarcastic than the last time he was seen. Patient expresses that he feels much better, doesn't have any acute complaints at this moment, he knows the reason he is in the hospital,he knows he had a stroke and is now recuperation, he is partially oriented, he knows that he is in the hospital and is already 2017, however some moments of confusion observed, and memory problems still persisted, but with less intensity. Patient reports good mood, good sleep, good appetite, denies anxiety, denies perceptual disturbances , kimi, suicidal or homicidal ideation. As per nurses, no behavioral or mood dysregulation has been observed in the last 24 hours, she is fully compliant with medication and medical recommendations. Review of Systems Constitutional: DENIES: Diaphoretic episodes, Fatigue, Fever, Weight gain, Weight loss, Chills, Dizziness, Change in appetite, Night Sweats Endocrine: DENIES: Heat/cold intolerance, Polydipsia, Polyuria, Polyphagia Eyes: DENIES: Blurred vision, Diplopia, Eye inflammation, Eye pain, Vision loss , Photosensitivity, Double Vision Ears, nose, mouth, throat: DENIES: Tinnitus, Hearing loss, Vertigo, Nasal discharge, Oral lesions, Throat pain, Hoarseness, Ear Pain, Running Nose, Epistaxis, Sinus Pain, Toothache, Odynophagia Respiratory: DENIES: Apneas, Cough, Snoring, Wheezing, Hemoptysis, Sputum production, Shortness of breath Cardiovascular: DENIES: Chest pain, Palpitations, Syncope, Dyspnea on Exertion , PND, Lower Extremity Edema, Orthopnea, Claudication Gastrointestinal: DENIES: Abdominal pain, Black stools, Bloody stools, Constipation, Diarrhea, Nausea, Vomiting, Difficulty Swallowing, Anorexia Integumentary: DENIES: Abnormal pigmentation, Nail changes, Pruritus, Rash Hematologic/lymphatic: DENIES: Bruising, Lymphadenopathy Immunologic/allergic: DENIES: Eczema, Urticaria Psychiatric: COMPLAINS OF: Confusion Objective Alert: Yes Evans: Person, Place (partially), Date (partially), Situation Mood: Calm, Oppositional Affect: Euthymic Memory Intact: Immediate, Recent Hallucinations: Other (none) Delusions: No Delusion Type: Other (not illicit) Suicidal: Ideation (he denies) Homicidal: Ideation (he denies) Insight/Judgement Improved Labs Test 02/20/16 03:41 Prothrombin Time 12.7 SEC Prothromb Time International 1.1 RATIO Ratio Sodium Level 140 MEQ/L Potassium Level 4.1 MEQ/L Chloride Level 106 MEQ/L Carbon Dioxide Level 24.6 MEQ/L Anion Gap 9 MEQ/L Blood Urea Nitrogen 20 MG/DL Creatinine 2.74 MG/DL Estimat Glomerular Filtration 24 ML/MIN Rate Random Glucose 298 MG/DL Calcium Level 8.8 MG/DL Magnesium Level 2.3 MG/DL Vitals/IOs Vital Signs Date Time Temp Pulse Resp B/P Pulse Ox O2 Delivery O2 Flow Rate FiO2 02/20/16 06:00 98 02/20/16 04:00 98.0 21 167/91 98 02/16/16 19:55 21 02/16/16 07:00 Nasal Cannula 2.00 Intake and Output 02/19/16 02/19/16 02/20/16 08:00 16:00 00:00 Intake Total 480 ml 600 ml 480 ml Output Total 550 ml 500 ml 700 ml Balance -70 ml 100 ml -220 ml Assessment & Plan Problem List: (1) 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 Patient does not need any immediate psychiatric intervention. Continue Seroquel 50 mg twice a day, Haldol 5 mg IM every 12 hours when necessary aggressive behavior and agitation. ICD Code: G31.84 Assessment & Plan Estimated LOS: days Justification for Cont. Inpt. Patient does not need psychiatric hospitalization at this moment Shorty Burden MD Feb 20, 2016 08:56
[2016-02-20] MEDS: SODIUM CHLORIDE 0.9% FLUSH 5 ML FLUSH IV FLUSH SCH ×2 (09:00→21:00)
[2016-02-20] MEDS: DOCUSATE SODIUM 100 MG CAP PO SCH ×2 (09:00→21:00)
[2016-02-20] MEDS: PANTOPRAZOLE SODIUM 40 MG VIAL IV SCH (09:19)
[2016-02-20] MEDS: CHOLECALCIFEROL (VIT D3) 1000 UNIT TAB PO SCH (09:19)
[2016-02-20] MEDS: hydrALAZINE HCL 50 MG TAB PO SCH ×3 (09:19→17:10)
[2016-02-20] MEDS: QUEtiapine FUMARATE 25 MG TAB PO SCH ×2 (09:24→11:57)
--- NOTE | 2016-02-20 14:55 | HHI.PR ---
Subjective Remarks The patient was working with occupational therapy. Nursing was at the bedside. The patient was frustrated that he was having difficulties with weakness and speech. He was not hopefully will recover to baseline. He still complained of double vision. Objective Vitals Vital Signs Date Time Temp Pulse Resp B/P Pulse Ox O2 Delivery O2 Flow Rate FiO2 02/20/16 12:00 98.7 99 18 133/72 98 02/20/16 12:00 99 02/20/16 10:00 98 02/20/16 08:00 90 02/20/16 08:00 98.8 92 25 169/88 99 02/20/16 07:00 99 Room Air 02/20/16 06:00 98 02/20/16 04:00 94 02/20/16 04:00 98.0 94 21 167/91 98 02/20/16 02:00 89 02/20/16 00:00 97.9 100 30 187/88 97 02/20/16 00:00 100 02/19/16 22:00 90 02/19/16 20:00 97.6 94 39 169/88 99 02/19/16 20:00 89 02/19/16 18:00 107 02/19/16 16:00 96 02/19/16 16:00 97.7 103 16 170/83 96 I/O 02/19/16 02/19/16 02/19/16 02/20/16 02/20/16 02/20/16 07:00 15:00 23:00 07:00 15:00 23:00 Intake Total 480 ml 600 ml 480 ml 480 ml Output Total 550 ml 500 ml 700 ml 1100 ml Balance -70 ml 100 ml -220 ml -620 ml Intake Oral 480 ml 600 ml 480 ml 480 ml Output Urine Total 550 ml 500 ml 700 ml 1100 ml # Bowel Movements 1 Result Diagram: 02/19/16 0424 02/20/16 0341 Imaging Last Impressions Renal Ultrasound 02/18/16 0000 Signed Impressions: Service Date/Time: Thursday, February 18, 2016 22:15 - CONCLUSION: 1. Echogenic kidneys which can be seen with medical renal disease. 2. Tiny left renal cyst. Christopher Greer MD Head CT 02/17/16 0000 Signed Impressions: Service Date/Time: Wednesday, February 17, 2016 00:45 - CONCLUSION: Stable left parietal infarction. Alex Carbone Jr., MD Brain MRI 02/16/16 0043 Signed Impressions: Service Date/Time: Tuesday, February 16, 2016 03:47 - CONCLUSION: 1. Acute infarction involving left parietal lobe posteriorly. Tiny foci of signal abnormality consistent with blood product within this area of stroke. 2. Atrophy and chronic small vessel ischemic change. Alex Carbone Jr., MD ADDENDUM: In addition to the left sided acute infarct, there is a focus of restricted diffusion identified on the right, a sub-insular external capsule region also characteristic of an area of acute infarction.. Tree Haro MD Neck Magnetic Resonance Angiography 02/16/16 0000 Signed Impressions: Service Date/Time: Tuesday, February 16, 2016 03:47 - CONCLUSION: 1. Patent carotid arteries and vertebral arteries. Alex Carbone Jr., MD Head Magnetic Resonance Angiography 02/16/16 0000 Signed Impressions: Service Date/Time: Tuesday, February 16, 2016 03:47 - CONCLUSION: Normal examination. Alex Carbone Jr., MD Objective Remarks GENERAL: Well-nourished, well-developed pt appearing lethargic. SKIN: Warm and dry. HEAD: Atraumatic. Normocephalic. EYES: Pupils equal and round, 3mm reactive. No scleral icterus. No injection or drainage. ENT: No nasal bleeding or discharge. Mucous membranes pink and moist. NECK: Trachea midline. No JVD. CARDIOVASCULAR: Regular rate and rhythm. No murmurs rubs or gallops. No sternotomy scar RESPIRATORY: No accessory muscle use. Clear to auscultation. Breath sounds equal bilaterally. On room air GASTROINTESTINAL: Abdomen soft, non-tender, nondistended. Vertical abdominal incision well healed. MUSCULOSKELETAL: Extremities without clubbing, cyanosis, or edema. No obvious deformities. NEUROLOGICAL: Moves extremities 4, alert and oriented to self . No obvious cranial nerve deficits. Strength 3/5 in lower extremities, 4/5 in upper extremities. PSYCH: Teary-eyed. Medications and IVs Current Medications Medications (Trade) Dose Ordered Sig/Ceasar Route Start Time Stop Time Status Last Admin (NS Flush) 2 ml UNSCH PRN IV FLUSH 02/16/16 03:45 (NS Flush) 2 ml BID IV FLUSH 02/16/16 09:00 02/20/16 09:00 (Morphine Inj) 2 mg Q2H PRN IV 02/16/16 03:45 02/16/16 23:14 (Protonix Inj) 40 mg DAILY IV 02/16/16 09:00 02/20/16 09:19 (Zofran Inj) 4 mg Q6H PRN IV 02/16/16 03:45 02/17/16 09:24 Miscellaneous Information 1 Q361D XX 02/16/16 03:45 02/16/16 05:52 (Chlorhexidine 2% Cloth) 3 pack Taper DAILY@04 TOP 02/16/16 04:00 02/11/17 03:59 02/20/16 04:56 (Chlorhexidine 2% Cloth) 3 pack UNSCH PRN TOP 02/16/16 03:45 (D50w (Vial) Inj) 25 ml UNSCH PRN IV PUSH 02/16/16 03:45 (Glucagon Inj) 1 mg UNSCH PRN OTHER 02/16/16 03:45 (Trandate Inj) 10 mg Q1HR PRN IV PUSH 02/16/16 21:00 02/20/16 03:22 (Apresoline Inj) 10 mg Q1HR PRN IV PUSH 02/16/16 20:30 02/20/16 05:20 (Apresoline) 50 mg TID PO 02/17/16 09:00 02/20/16 09:19 (SEROquel) 50 mg BID@09,12 PO 02/18/16 09:00 02/20/16 11:57 (Colace) 100 mg BID PO 02/17/16 21:00 02/19/16 21:48 (Haldol Inj) 5 mg Q12HR PRN IV 02/18/16 21:00 Amlodipine Besylate 10 mg 10 mg DAILY PO 02/18/16 13:00 02/20/16 09:19 (Coumadin Consult Pharmacy) 0 ml @ 0 mls/hr UNSCH OTHER 02/19/16 15:45 (Levemir Inj) 10 units HS SQ 02/19/16 21:00 02/19/16 21:49 (Vitamin D3) 2,000 units DAILY PO 02/19/16 17:00 02/20/16 09:19 (Coumadin) 5 mg DAILY@1600 PO 02/20/16 16:00 A/P Assessment and Plan Acute CVA/ metabolic encephalopathy L parietal ischemic stroke with small petechial hemorrhagic conversion. MRI L parietal stroke with tiny foci of hemorrhage. Echo with grade 1 diastolic dysfunction. Carotids without stenosis. Neurosurgery and neurology consults appreciated. Mental status improved. - Coumadin started per neurology as risk of recurrent CVA outweighs risk of bleeding. - PT/OT/ST. Will likely need rehab. - Follow up results of immunological studies, and prothrombin gene mutation study. Hypertension Blood pressure stable 02/19. - hydralazine started. Added amlodipine 02/18/16. - labetalol as needed. Agitation Psychiatry consult appreciated. Resolved. - meds per psychiatry. Haldol as needed. REED vs ? chronic kidney disease Creatinine stable 02/19. Appreciate nephrology consult. - Follow-up BMP. - avoid nephrotoxic agents. Diabetes mellitus Glucose level has been elevated. - Medium dose insulin sliding scale ac/hs. Increase Levemir to 20 units BID 02/19. PROPH: SCDs/teds, Coumadin. Discharge Planning Transfer to the floor. Ismael Jerome DO Feb 20, 2016 14:54
[2016-02-20] MEDS ORDERED: INSULIN DETEMIR 100 UNITS/ML VIAL SQ ONE (15:15)
[2016-02-20] MEDS: WARFARIN SOD 5 MG TAB PO SCH (16:41)
[2016-02-20] MEDS: HALOPERIDOL LACTATE 5 MG/ML AMP IV PRN (16:42)
--- NOTE | 2016-02-20 17:51 | HM ---
Date Performed: 02/19/2016 Time Performed: 09:55:00 HOOKUP DATE: 02/19/16 09:55:00 AM [facility] ANALYSIS START TIME: 02/19/2016 10:00:00 AM ANALYSIS END TIME: 02/20/2016 10:04:00 AM PATIENT AGE: 60 PATIENT HEIGHT: 68 PATIENT WEIGHT: 223 DRUG LIST PATIENT DIAGNOSIS: CVA TEST NARRATIVE: The patient's average heart rate was 100 BPM. Heart rates greater than 120 BPM were noted 13% of the time. No episodes of bradycardia were noted. No pauses exceeding 2.0 s econds were noted. 9 ventricular ectopics, which represented < 1% of the total beat count, were n oted. The highest ventricular ectopic frequency occurred from 11:00 PM to 12:00 AM Fri. During this time 3 VE(s) occurred. Ventricular ectopics were observed as 9 isolated beat(s) only. No couplets or runs were noted. 5 supraventricular ectopics, which represented < 1% of the total beat count, were noted. The highest supraventricular ectopic frequency occurred from 10:00 PM to 11:00 PM [facility]. During this time 2 SVE(s) occurred. Multiple episodes of ST depression (defined as -1.0 mm or mor e) were noted in channel 1. The maximum depression of -1.9 mm occurred at 03:14:35 AM Fri. No epis odes of ST depression (defined as -1.0 mm or more) were noted in channel 2. No episodes of ST depres sandra (defined as -1.0 mm or more) were noted in channel 3. No diary events were reported by the patient. TEST INTERPRETATION: The predominant was sinus. There were multiple brief episodes of tachycardi a. There was an episode in multifocal atrial tachycardia. The duration was less than 1 minute and 03: 14 with a heart rate of 150 beats/min. No diary entries were provided. Conclusions: normal Sinus rhyt hm . Episode of multifocal atrial tachycardia lasting less than one minute, up to 150 beats/min. Signed by : Sandy Heard
[2016-02-20] MEDS: INSULIN DETEMIR 100 UNITS/ML VIAL SQ SCH (22:46)
--- NOTE | 2016-02-20 22:49 | RADRPT ---
EXAM DATE/TIME: 02/20/2016 22:22 [facility] COMPARISON: No previous studies available for comparison. INDICATIONS : Left Hip Pain after fall. MEDICAL HISTORY : Carcinoma, colon. Cerebrovascular accident. Heart attack. Hypertension. Paresthesia. Diabetes. Mariju ezequiel use. SURGICAL HISTORY : Colon cancer surgery. ENCOUNTER: Initial ACUITY: 1 day PAIN SCORE: 10/10 LOCATION: Left Hip. FINDINGS: Examination of the left hip was performed with AP Pelvis. The primary and secondary trabecular patte rn of the femoral neck is intact. The hip joint is of normal width without significant sclerosis or bony hypertrophy. The acetabulum is grossly intact. CONCLUSION: No acute findings. Mild osteoarthritis of the left hip. Ron Stahl MD on February 20, 2016 at 22:45 Board Certified Radiologist. This report was verified electronically.
[2016-02-21] VITALS (10 sets, daily range): BP systolic 144–183; BP diastolic 64–84; PULSE 79–106; RESP 18–20; TEMP 95.8–98.9; O2SAT 96–99
[2016-02-21] MEDS: CHLORHEXIDINE GLUCONATE 2 % 1 PACK (2 CLOTHS) TOP SCH ×2 (04:00→23:24)
[2016-02-21] MEDS: INSULIN ASPART SUPPLEMENTAL SCALE SQ SCH ×4 (05:35→21:00)
[2016-02-21 08:03] LABS: INTERNATIONAL NORMALIZED RATIO 1.3 RATIO; PROTHROMBIN TIME - PATIENT 14.9 SEC (9.8-11.6)
[2016-02-21] MEDS: hydrALAZINE HCL 50 MG TAB PO SCH ×3 (08:18→17:14)
[2016-02-21] MEDS: CHOLECALCIFEROL (VIT D3) 1000 UNIT TAB PO SCH (08:18)
[2016-02-21] MEDS: QUEtiapine FUMARATE 25 MG TAB PO SCH ×2 (08:18→13:58)
[2016-02-21] MEDS: DOCUSATE SODIUM 100 MG CAP PO SCH ×2 (08:18→21:24)
[2016-02-21] MEDS: SODIUM CHLORIDE 0.9% FLUSH 5 ML FLUSH IV FLUSH SCH ×2 (08:19→21:24)
[2016-02-21] MEDS: PANTOPRAZOLE SODIUM 40 MG VIAL IV SCH (08:19)
[2016-02-21] MEDS: INSULIN DETEMIR 100 UNITS/ML VIAL SQ SCH ×2 (08:19→21:24)
--- NOTE | 2016-02-21 15:36 | HHI.PR ---
Subjective Remarks The patient was lethargic. He wasn't sure why he was sleepy, he thinks he might have gotten enough sleep. He denied any acute complaints. He is not sure if he worked out with physical therapy. He is not sure if he is any stronger today. Objective Vitals Vital Signs Date Time Temp Pulse Resp B/P Pulse Ox O2 Delivery O2 Flow Rate FiO2 02/21/16 12:00 96.1 90 20 159/83 96 02/21/16 08:37 97 Room Air 02/21/16 07:40 95.8 88 20 144/64 97 02/21/16 05:11 97 02/21/16 04:00 98.1 106 19 183/82 99 02/21/16 00:00 98.9 85 18 161/84 96 02/20/16 22:15 86 20 156/76 02/20/16 21:10 97.8 94 18 161/82 99 02/20/16 21:00 Room Air 02/20/16 20:00 97.8 86 17 152/70 97 02/20/16 16:00 98.4 90 16 177/84 99 02/20/16 16:00 90 I/O 02/20/16 02/20/16 02/20/16 02/21/16 02/21/16 02/21/16 07:00 15:00 23:00 07:00 15:00 23:00 Intake Total 480 ml 640 ml 120 ml 120 ml 420 ml Output Total 1100 ml 500 ml 400 ml 650 ml Balance -620 ml 140 ml -280 ml -530 ml 420 ml Intake Oral 480 ml 640 ml 120 ml 120 ml 420 ml Output Urine Total 1100 ml 500 ml 400 ml 650 ml # Bowel Movements 0 Result Diagram: 02/19/16 0424 02/20/16 0341 Imaging Last Impressions Hip and Pelvis X-Ray 02/20/16 0000 Signed Impressions: Service Date/Time: Saturday, February 20, 2016 22:22 - CONCLUSION: No acute findings. Mild osteoarthritis of the left hip. Ron Stahl MD Renal Ultrasound 02/18/16 0000 Signed Impressions: Service Date/Time: Thursday, February 18, 2016 22:15 - CONCLUSION: 1. Echogenic kidneys which can be seen with medical renal disease. 2. Tiny left renal cyst. Christopher Greer MD Head CT 02/17/16 0000 Signed Impressions: Service Date/Time: Wednesday, February 17, 2016 00:45 - CONCLUSION: Stable left parietal infarction. Alex Carbone Jr., MD Brain MRI 02/16/16 0043 Signed Impressions: Service Date/Time: Tuesday, February 16, 2016 03:47 - CONCLUSION: 1. Acute infarction involving left parietal lobe posteriorly. Tiny foci of signal abnormality consistent with blood product within this area of stroke. 2. Atrophy and chronic small vessel ischemic change. Alex Carbone Jr., MD ADDENDUM: In addition to the left sided acute infarct, there is a focus of restricted diffusion identified on the right, a sub-insular external capsule region also characteristic of an area of acute infarction.. Tree Haro MD Neck Magnetic Resonance Angiography 02/16/16 0000 Signed Impressions: Service Date/Time: Tuesday, February 16, 2016 03:47 - CONCLUSION: 1. Patent carotid arteries and vertebral arteries. Alex Carbone Jr., MD Head Magnetic Resonance Angiography 02/16/16 0000 Signed Impressions: Service Date/Time: Tuesday, February 16, 2016 03:47 - CONCLUSION: Normal examination. Alex Carbone Jr., MD Objective Remarks GENERAL: Well-nourished, well-developed pt appearing lethargic. SKIN: Warm and dry. HEAD: Atraumatic. Normocephalic. EYES: Pupils equal and round, 3mm reactive. No scleral icterus. No injection or drainage. ENT: No nasal bleeding or discharge. Mucous membranes pink and moist. NECK: Trachea midline. No JVD. CARDIOVASCULAR: Regular rate and rhythm. No murmurs rubs or gallops. No sternotomy scar RESPIRATORY: No accessory muscle use. Clear to auscultation. Breath sounds equal bilaterally. On room air GASTROINTESTINAL: Abdomen soft, non-tender, nondistended. Vertical abdominal incision well healed. MUSCULOSKELETAL: Extremities without clubbing, cyanosis, or edema. No obvious deformities. NEUROLOGICAL: Moves extremities 4, alert and oriented to self . No obvious cranial nerve deficits. Strength 3/5 in lower extremities, 4/5 in upper extremities. PSYCH: Slightly confused. Medications and IVs Current Medications Medications (Trade) Dose Ordered Sig/Ceasar Route Start Time Stop Time Status Last Admin (NS Flush) 2 ml UNSCH PRN IV FLUSH 02/16/16 03:45 (NS Flush) 2 ml BID IV FLUSH 1/2/17 09:00 02/21/16 08:19 (Morphine Inj) 2 mg Q2H PRN IV 02/16/16 03:45 02/16/16 23:14 (Protonix Inj) 40 mg DAILY IV 02/16/16 09:00 02/21/16 08:19 (Zofran Inj) 4 mg Q6H PRN IV 02/16/16 03:45 02/17/16 09:24 Miscellaneous Information 1 Q361D XX 02/16/16 03:45 02/16/16 05:52 (Chlorhexidine 2% Cloth) Taper DAILY@04 TOP 02/16/16 04:00 02/11/17 03:59 02/20/16 04:56 (Chlorhexidine 2% Cloth) 3 pack UNSCH PRN TOP 02/16/16 03:45 (D50w (Vial) Inj) 25 ml UNSCH PRN IV PUSH 02/16/16 03:45 (Glucagon Inj) 1 mg UNSCH PRN OTHER 02/16/16 03:45 (Trandate Inj) 10 mg Q1HR PRN IV PUSH 02/16/16 21:00 02/20/16 03:22 (Apresoline Inj) 10 mg Q1HR PRN IV PUSH 02/16/16 20:30 02/20/16 05:20 (Apresoline) 50 mg TID PO 02/17/16 09:00 02/21/16 13:57 (SEROquel) 50 mg BID@09,12 PO 02/18/16 09:00 02/21/16 13:58 (Colace) 100 mg BID PO 02/17/16 21:00 02/21/16 08:18 (Haldol Inj) 5 mg Q12HR PRN IV 02/18/16 21:00 02/20/16 16:42 Amlodipine Besylate 10 mg 10 mg DAILY PO 02/18/16 13:00 02/21/16 08:18 (Coumadin Consult Pharmacy) 0 ml @ 0 mls/hr UNSCH OTHER 02/19/16 15:45 (Vitamin D3) 2,000 units DAILY PO 02/19/16 17:00 02/21/16 08:18 (Coumadin) 5 mg DAILY@1600 PO 02/20/16 16:00 02/20/16 16:41 (Levemir Inj) 20 units DAILY SQ 02/22/16 09:00 (Levemir Inj) 15 units HS SQ 02/21/16 21:00 A/P Assessment and Plan Acute CVA/ metabolic encephalopathy L parietal ischemic stroke with small petechial hemorrhagic conversion. MRI L parietal stroke with tiny foci of hemorrhage. Echo with grade 1 diastolic dysfunction. Carotids without stenosis. Neurosurgery and neurology consults appreciated. Mental status improved. - Coumadin started per neurology as risk of recurrent CVA outweighs risk of bleeding. INR 1.3 02/20. - PT/OT/ST. Will likely need rehab. - Follow up results of immunological studies, and prothrombin gene mutation study. Hypertension Blood pressure slightly elevated 02/20. - hydralazine started. Added amlodipine 02/18/16. - Vasotec as needed. Agitation Psychiatry consult appreciated. Resolved. - meds per psychiatry. Haldol as needed. REED vs ? chronic kidney disease Creatinine stable 02/19. Appreciate nephrology consult. - Follow-up BMP. - avoid nephrotoxic agents. Diabetes mellitus Glucose level has been elevated. Improved 02/20. - Medium dose insulin sliding scale ac/hs. Adjust Levemir to 20 units daily, 15 units HS 02/20. PROPH: SCDs/teds, Coumadin. Discharge Planning Will need rehab following neuro clearance. Ismael Jermoe DO Feb 21, 2016 15:36
[2016-02-21] MEDS ORDERED: ENALAPRILAT 1.25 MG/ML VIAL IV PUSH PRN (15:45)
[2016-02-21] MEDS: WARFARIN SOD 5 MG TAB PO SCH (16:00)
--- NOTE | 2016-02-21 20:01 | HHI.PR ---
Review/Management Diagnosis left MCA stroke with small hemorrhage Plan continue coumadin and monitor INR Diagnosis/Plan: (1) Cerebral infarction, associated with systemic hypoxia or ischemia, acute Plan: A repeat CT of the head is ordered. In the absence of new bleeding anti coagulation may be appropriate. Aspirin was ordered for now and can be stopped if therapeutic on another anticoagulant. PT/OT/ST, EEG and neuropsychology evaluation may be helpful. Subjective Subjective Comments No acute events reported No change in right side weakness Active Medications Current Medications Medications (Trade) Dose Ordered Sig/Ceasar Route Start Time Stop Time Status Last Admin (NS Flush) 2 ml UNSCH PRN IV FLUSH 02/16/16 03:45 (NS Flush) 2 ml BID IV FLUSH 02/16/16 09:00 02/21/16 08:19 (Morphine Inj) 2 mg Q2H PRN IV 02/16/16 03:45 02/16/16 23:14 (Protonix Inj) 40 mg DAILY IV 02/16/16 09:00 02/21/16 08:19 (Zofran Inj) 4 mg Q6H PRN IV 02/16/16 03:45 02/17/16 09:24 Miscellaneous Information 1 Q361D XX 02/16/16 03:45 02/16/16 05:52 (Chlorhexidine 2% Cloth) Taper DAILY@04 TOP 02/16/16 04:00 02/11/17 03:59 02/20/16 04:56 (Chlorhexidine 2% Cloth) 3 pack UNSCH PRN TOP 02/16/16 03:45 (D50w (Vial) Inj) 25 ml UNSCH PRN IV PUSH 02/16/16 03:45 (Glucagon Inj) 1 mg UNSCH PRN OTHER 02/16/16 03:45 (Apresoline Inj) 10 mg Q1HR PRN IV PUSH 02/16/16 20:30 02/20/16 05:20 (Apresoline) 50 mg TID PO 02/17/16 09:00 02/21/16 13:57 (SEROquel) 50 mg BID@09,12 PO 02/18/16 09:00 02/21/16 13:58 (Colace) 100 mg BID PO 02/17/16 21:00 02/21/16 08:18 (Haldol Inj) 5 mg Q12HR PRN IV 02/18/16 21:00 02/20/16 16:42 Amlodipine Besylate 10 mg 10 mg DAILY PO 02/18/16 13:00 02/21/16 08:18 (Coumadin Consult Pharmacy) 0 ml @ 0 mls/hr UNSCH OTHER 02/19/16 15:45 (Vitamin D3) 2,000 units DAILY PO 02/19/16 17:00 02/21/16 08:18 (Coumadin) 5 mg DAILY@1600 PO 02/20/16 16:00 02/20/16 16:41 (Levemir Inj) 20 units DAILY SQ 02/22/16 09:00 (Levemir Inj) 15 units HS SQ 02/21/16 21:00 (Vasotec Inj) 1.25 mg Q6H PRN IV PUSH 02/21/16 15:45 Allergies Allergies Coded Allergies No Known Allergies (Unverified02/16/16) Exam I&O / VS 02/20/16 02/20/16 02/21/16 15:00 23:00 07:00 Intake Total 640 ml 120 ml 120 ml Output Total 500 ml 400 ml 650 ml Balance 140 ml -280 ml -530 ml Intake Oral 640 ml 120 ml 120 ml Output Urine Total 500 ml 400 ml 650 ml # Bowel Movements 0 Vital Signs Date Time Temp Pulse Resp B/P Pulse Ox O2 Delivery O2 Flow Rate FiO2 02/21/16 17:23 79 02/21/16 16:49 97.0 86 20 154/77 99 02/21/16 12:00 96.1 90 20 159/83 96 02/21/16 11:54 99 02/21/16 08:37 97 Room Air 02/21/16 07:40 95.8 88 20 144/64 97 02/21/16 05:11 97 02/21/16 04:00 98.1 106 19 183/82 99 02/21/16 00:00 98.9 85 18 161/84 96 02/20/16 22:15 86 20 156/76 02/20/16 21:10 97.8 94 18 161/82 99 02/20/16 21:00 Room Air Exam Comments alert, speech dysarthric, follows commands CN mild RIght umn 7 motor 4/5 RUE and RLE, 5/5 Lue and LLe Objective Micro and Labs Laboratory Tests Test 02/21/16 06:53 Prothrombin Time 14.9 Prothromb Time International 1.3 Ratio Dre Ocampo PhD Feb 21, 2016 20:01
[2016-02-22] VITALS (7 sets, daily range): BP systolic 157–175; BP diastolic 77–89; PULSE 76–94; RESP 20; TEMP 96–97.7; O2SAT 95–100
[2016-02-22] MEDS: INSULIN ASPART SUPPLEMENTAL SCALE SQ SCH ×4 (07:00→21:34)
[2016-02-22 07:06] LABS: INTERNATIONAL NORMALIZED RATIO 1.4 RATIO; PROTHROMBIN TIME - PATIENT 16.1 SEC (9.8-11.6)
[2016-02-22 07:09] LABS: BICARBONATE 25.8 MEQ/L (21.0-32.0); POTASSIUM 4.1 MEQ/L (3.5-5.1)
[2016-02-22] MEDS: INSULIN DETEMIR 100 UNITS/ML VIAL SQ SCH ×2 (08:23→21:34)
[2016-02-22] MEDS: CHOLECALCIFEROL (VIT D3) 1000 UNIT TAB PO SCH (08:23)
[2016-02-22] MEDS: QUEtiapine FUMARATE 25 MG TAB PO SCH ×2 (08:23→12:01)
[2016-02-22] MEDS: hydrALAZINE HCL 50 MG TAB PO SCH ×3 (08:23→17:02)
[2016-02-22] MEDS: DOCUSATE SODIUM 100 MG CAP PO SCH ×2 (08:23→21:33)
[2016-02-22] MEDS: PANTOPRAZOLE SODIUM 40 MG VIAL IV SCH (08:24)
[2016-02-22] MEDS: SODIUM CHLORIDE 0.9% FLUSH 5 ML FLUSH IV FLUSH SCH ×2 (08:25→21:42)
--- NOTE | 2016-02-22 10:11 | HHI.PR ---
Subjective Remarks The patient was agitated that his diet was restricted. Otherwise he had no acute complaints. He still said he was weak. Nursing was at the bedside. Objective Vitals Vital Signs Date Time Temp Pulse Resp B/P Pulse Ox O2 Delivery O2 Flow Rate FiO2 02/22/16 07:45 96.9 76 20 175/80 100 02/22/16 04:00 96.8 85 20 159/87 95 02/22/16 00:00 97.4 94 20 175/88 96 02/21/16 20:00 96.7 88 20 154/79 97 02/21/16 19:15 86 02/21/16 17:23 79 02/21/16 16:49 97.0 86 20 154/77 99 02/21/16 12:00 96.1 90 20 159/83 96 02/21/16 11:54 99 I/O 02/21/16 02/21/16 02/21/16 02/22/16 02/22/16 02/22/16 07:00 15:00 23:00 07:00 15:00 23:00 Intake Total 120 ml 420 ml 240 ml 120 ml Output Total 650 ml 1050 ml 300 ml Balance -530 ml 420 ml -810 ml -180 ml Intake Oral 120 ml 420 ml 240 ml 120 ml IV Total 0 ml Output Urine Total 650 ml 1050 ml 300 ml # Bowel Movements 0 0 Result Diagram: 02/19/16 0424 02/22/16 0625 Imaging Last Impressions Hip and Pelvis X-Ray 02/20/16 0000 Signed Impressions: Service Date/Time: Saturday, February 20, 2016 22:22 - CONCLUSION: No acute findings. Mild osteoarthritis of the left hip. Ron Stahl MD Renal Ultrasound 02/18/16 0000 Signed Impressions: Service Date/Time: Thursday, February 18, 2016 22:15 - CONCLUSION: 1. Echogenic kidneys which can be seen with medical renal disease. 2. Tiny left renal cyst. Christopher Greer MD Head CT 02/17/16 0000 Signed Impressions: Service Date/Time: Wednesday, February 17, 2016 00:45 - CONCLUSION: Stable left parietal infarction. Alex Carbone Jr., MD Brain MRI 02/16/16 0043 Signed Impressions: Service Date/Time: Tuesday, February 16, 2016 03:47 - CONCLUSION: 1. Acute infarction involving left parietal lobe posteriorly. Tiny foci of signal abnormality consistent with blood product within this area of stroke. 2. Atrophy and chronic small vessel ischemic change. Alex Carbone Jr., MD ADDENDUM: In addition to the left sided acute infarct, there is a focus of restricted diffusion identified on the right, a sub-insular external capsule region also characteristic of an area of acute infarction.. Tree Haro MD Neck Magnetic Resonance Angiography 02/16/16 0000 Signed Impressions: Service Date/Time: Tuesday, February 16, 2016 03:47 - CONCLUSION: 1. Patent carotid arteries and vertebral arteries. Alex Carbone Jr., MD Head Magnetic Resonance Angiography 02/16/16 0000 Signed Impressions: Service Date/Time: Tuesday, February 16, 2016 03:47 - CONCLUSION: Normal examination. Alex Carbone Jr., MD Objective Remarks GENERAL: Well-nourished, well-developed pt appearing lethargic. SKIN: Warm and dry. HEAD: Atraumatic. Normocephalic. EYES: Pupils equal and round, 3mm reactive. No scleral icterus. No injection or drainage. ENT: No nasal bleeding or discharge. Mucous membranes pink and moist. NECK: Trachea midline. No JVD. CARDIOVASCULAR: Regular rate and rhythm. No murmurs rubs or gallops. No sternotomy scar RESPIRATORY: No accessory muscle use. Clear to auscultation. Breath sounds equal bilaterally. On room air GASTROINTESTINAL: Abdomen soft, non-tender, nondistended. Vertical abdominal incision well healed. MUSCULOSKELETAL: Extremities without clubbing, cyanosis, or edema. No obvious deformities. NEUROLOGICAL: Moves extremities 4, alert and oriented to self . No obvious cranial nerve deficits. Strength 3/5 in lower extremities, 4/5 in upper extremities. PSYCH: Slightly agitated. Medications and IVs Current Medications Medications (Trade) Dose Ordered Sig/Ceasar Route Start Time Stop Time Status Last Admin (NS Flush) 2 ml UNSCH PRN IV FLUSH 02/16/16 03:45 (NS Flush) 2 ml BID IV FLUSH 02/16/16 09:00 02/22/16 08:25 (Morphine Inj) 2 mg Q2H PRN IV 02/16/16 03:45 02/16/16 23:14 (Zofran Inj) 4 mg Q6H PRN IV 02/16/16 03:45 02/17/16 09:24 Miscellaneous Information 1 Q361D XX 02/16/16 03:45 02/16/16 05:52 (D50w (Vial) Inj) 25 ml UNSCH PRN IV PUSH 02/16/16 03:45 (Glucagon Inj) 1 mg UNSCH PRN OTHER 02/16/16 03:45 (Apresoline Inj) 10 mg Q1HR PRN IV PUSH 02/16/16 20:30 02/20/16 05:20 (Apresoline) 50 mg TID PO 02/17/16 09:00 02/22/16 08:23 (SEROquel) 50 mg BID@09,12 PO 02/18/16 09:00 02/22/16 08:23 (Colace) 100 mg BID PO 02/17/16 21:00 02/22/16 08:23 (Haldol Inj) 5 mg Q12HR PRN IV 02/18/16 21:00 02/20/16 16:42 Amlodipine Besylate 10 mg 10 mg DAILY PO 02/18/16 13:00 02/22/16 08:23 (Coumadin Consult Pharmacy) 0 ml @ 0 mls/hr UNSCH OTHER 02/19/16 15:45 (Vitamin D3) 2,000 units DAILY PO 02/19/16 17:00 02/22/16 08:23 (Coumadin) 5 mg DAILY@1600 PO 02/20/16 16:00 02/20/16 16:41 (Levemir Inj) 20 units DAILY SQ 02/22/16 09:00 02/22/16 08:23 (Levemir Inj) 15 units HS SQ 02/21/16 21:00 02/21/16 21:24 (Vasotec Inj) 1.25 mg Q6H PRN IV PUSH 02/21/16 15:45 (Protonix) 40 mg DAILY PO 02/23/16 09:00 UNV A/P Assessment and Plan Acute CVA/ metabolic encephalopathy L parietal ischemic stroke with small petechial hemorrhagic conversion. MRI L parietal stroke with tiny foci of hemorrhage. Echo with grade 1 diastolic dysfunction. Carotids without stenosis. Neurosurgery and neurology consults appreciated. Mental status stable 02/21. - Coumadin started per neurology as risk of recurrent CVA outweighs risk of bleeding. INR 1.4 02/21, apparently he refused 02/20 dose. - PT/OT/ST. Will need rehab. - Follow up results of immunological studies, and prothrombin gene mutation study. Hypertension Blood pressure still slightly elevated 02/21. - hydralazine started. Added amlodipine 02/18/16. Add labetalol 02/21. - Vasotec as needed. Agitation Psychiatry consult appreciated. Resolved. - meds per psychiatry. Haldol as needed. REED vs ? chronic kidney disease Creatinine stable 02/21. Appreciate nephrology consult. - Follow-up BMP. - avoid nephrotoxic agents. Diabetes mellitus Glucose level has been elevated. Improved 02/21. - Medium dose insulin sliding scale ac/hs. Adjusted Levemir to 20 units daily, 15 units HS 02/20. PROPH: SCDs/teds, Coumadin. Discharge Planning Will need rehab following neuro clearance. Ismael Jerome DO Feb 22, 2016 10:11
[2016-02-22] MEDS: LABETALOL HCL 100 MG TAB PO SCH ×2 (12:00→21:33)
--- NOTE | 2016-02-22 13:12 | HHI.PR ---
Review/Management Diagnosis left MCA stroke with small hemorrhage Plan continue coumadin and monitor INR. INR today is 1.4 Diagnosis/Plan: (1) Cerebral infarction, associated with systemic hypoxia or ischemia, acute Plan: A repeat CT of the head is ordered. In the absence of new bleeding anti coagulation may be appropriate. Aspirin was ordered for now and can be stopped if therapeutic on another anticoagulant. PT/OT/ST, EEG and neuropsychology evaluation may be helpful. Subjective Subjective Comments No acute events reported Active Medications Current Medications Medications (Trade) Dose Ordered Sig/Ceasar Route Start Time Stop Time Status Last Admin (NS Flush) 2 ml UNSCH PRN IV FLUSH 02/16/16 03:45 (NS Flush) 2 ml BID IV FLUSH 02/16/16 09:00 02/22/16 08:25 (Morphine Inj) 2 mg Q2H PRN IV 02/16/16 03:45 02/16/16 23:14 (Zofran Inj) 4 mg Q6H PRN IV 02/16/16 03:45 02/17/16 09:24 Miscellaneous Information 1 Q361D XX 02/16/16 03:45 02/16/16 05:52 (D50w (Vial) Inj) 25 ml UNSCH PRN IV PUSH 02/16/16 03:45 (Glucagon Inj) 1 mg UNSCH PRN OTHER 02/16/16 03:45 (Apresoline Inj) 10 mg Q1HR PRN IV PUSH 02/16/16 20:30 02/20/16 05:20 (Apresoline) 50 mg TID PO 02/17/16 09:00 02/22/16 12:01 (SEROquel) 50 mg BID@09,12 PO 02/18/16 09:00 02/22/16 12:01 (Colace) 100 mg BID PO 02/17/16 21:00 02/22/16 08:23 (Haldol Inj) 5 mg Q12HR PRN IV 02/18/16 21:00 02/20/16 16:42 Amlodipine Besylate 10 mg 10 mg DAILY PO 02/18/16 13:00 02/22/16 08:23 (Coumadin Consult Pharmacy) 0 ml @ 0 mls/hr UNSCH OTHER 02/19/16 15:45 (Vitamin D3) 2,000 units DAILY PO 02/19/16 17:00 02/22/16 08:23 (Coumadin) 5 mg DAILY@1600 PO 02/20/16 16:00 02/20/16 16:41 (Levemir Inj) 20 units DAILY SQ 02/22/16 09:00 02/22/16 08:23 (Levemir Inj) 15 units HS SQ 02/21/16 21:00 02/21/16 21:24 (Vasotec Inj) 1.25 mg Q6H PRN IV PUSH 02/21/16 15:45 (Protonix) 40 mg DAILY PO 02/23/16 09:00 (Trandate) 100 mg Q12HR PO 02/22/16 10:15 02/22/16 12:00 Allergies Allergies Coded Allergies No Known Allergies (Unverified02/16/16) Exam I&O / VS 02/21/16 02/21/16 02/22/16 15:00 23:00 07:00 Intake Total 420 ml 240 ml 120 ml Output Total 1050 ml 300 ml Balance 420 ml -810 ml -180 ml Intake Oral 420 ml 240 ml 120 ml IV Total 0 ml Output Urine Total 1050 ml 300 ml # Bowel Movements 0 0 Vital Signs Date Time Temp Pulse Resp B/P Pulse Ox O2 Delivery O2 Flow Rate FiO2 02/22/16 11:38 97.7 94 20 168/89 98 02/22/16 07:45 96.9 76 20 175/80 100 02/22/16 04:00 96.8 85 20 159/87 95 02/22/16 00:00 97.4 94 20 175/88 96 02/21/16 20:00 96.7 88 20 154/79 97 02/21/16 19:15 86 02/21/16 17:23 79 02/21/16 16:49 97.0 86 20 154/77 99 Exam Comments alert, speech dysarthric, follows commands CN mild RIght umn 7 motor 4/5 RUE and RLE, 5/5 Lue and LLe Objective Micro and Labs Laboratory Tests Test 02/22/16 06:25 Prothrombin Time 16.1 Prothromb Time International 1.4 Ratio Sodium Level 143 Potassium Level 4.1 Chloride Level 110 Carbon Dioxide Level 25.8 Anion Gap 7 Blood Urea Nitrogen 20 Creatinine 2.67 Estimat Glomerular Filtration 25 Rate Random Glucose 98 Calcium Level 8.5 Dre Ocampo PhD MD Feb 22, 2016 13:12
[2016-02-22] MEDS: WARFARIN SOD 5 MG TAB PO SCH (17:02)
[2016-02-22] MEDS: HALOPERIDOL LACTATE 5 MG/ML AMP IV PRN (21:33)
[2016-02-23] VITALS (9 sets, daily range): BP systolic 140–168; BP diastolic 71–88; PULSE 68–123; RESP 18–20; TEMP 95.8–98.1; O2SAT 96–99
[2016-02-23] MEDS: INSULIN ASPART SUPPLEMENTAL SCALE SQ SCH ×4 (06:49→21:00)
[2016-02-23 07:43] LABS: INTERNATIONAL NORMALIZED RATIO 1.4 RATIO; PROTHROMBIN TIME - PATIENT 15.5 SEC (9.8-11.6)
--- NOTE | 2016-02-23 08:37 | HHI.PR ---
Subjective Remarks sr Objective Vital Signs Date Time Temp Pulse Resp B/P Pulse Ox O2 Delivery O2 Flow Rate FiO2 02/23/16 08:00 97.8 89 18 168/88 96 02/23/16 04:00 96.5 75 20 159/88 99 02/23/16 03:16 90 02/22/16 20:00 96.0 86 20 167/83 96 02/22/16 16:05 96.8 90 20 157/77 97 02/22/16 14:47 85 02/22/16 11:38 97.7 94 20 168/89 98 I/O 02/22/16 02/22/16 02/22/16 02/23/16 02/23/16 02/23/16 07:00 15:00 23:00 07:00 15:00 23:00 Intake Total 120 ml 480 ml Output Total 300 ml 800 ml Balance -180 ml -320 ml Intake Oral 120 ml 480 ml Output Urine Total 300 ml 800 ml # Bowel Movements 0 Result Diagram: 02/19/16 0424 02/22/16 0625 Objective Remarks alert and awake vff maybe alittle r visual dec acuity moves all well is in fair mood names ok no change Assessment and Plan Assessment and Plan there is some petechial blood in the infarct but with bilat cva at risk for new cva fu hypercoag screen and holter still pend echo neg ldl inc but statin can inc risk of bleeding and starting coumadin so will hold on statin for 2 months and start then trop neg i dw joseline daughter and described risk of bleeding into brain even from coumadin and already some small blood in left infarct but theat if not on anticoagulation at risk for more cva likely embolic she agrees to go ahead with coumadin n he needs to get oob with PT got his coumadin last noc much better watch inr ? ok to floor tele 02/20/16 stable neuro ok to floor oob please do not overshoot inr with blood in infarct be careful of dose over 5mg here to start i will fu tuesday ---- 02/23/16 no major change oob 7.5 coumadin today then 6mg ready for rehab Walt Peterson MD Feb 23, 2016 08:36
[2016-02-23] MEDS: CHOLECALCIFEROL (VIT D3) 1000 UNIT TAB PO SCH (09:45)
[2016-02-23] MEDS: DOCUSATE SODIUM 100 MG CAP PO SCH ×2 (09:45→21:54)
[2016-02-23] MEDS: SODIUM CHLORIDE 0.9% FLUSH 5 ML FLUSH IV FLUSH SCH ×2 (09:45→21:54)
[2016-02-23] MEDS: INSULIN DETEMIR 100 UNITS/ML VIAL SQ SCH ×2 (09:45→21:55)
[2016-02-23] MEDS: LABETALOL HCL 100 MG TAB PO SCH ×2 (09:45→21:54)
[2016-02-23] MEDS: hydrALAZINE HCL 50 MG TAB PO SCH ×3 (09:45→17:12)
[2016-02-23] MEDS: PANTOPRAZOLE SOD 40 MG DELAYED RELEASE TAB PO SCH (09:45)
[2016-02-23] MEDS: QUEtiapine FUMARATE 25 MG TAB PO SCH ×3 (09:50→21:54)
[2016-02-23] MEDS ORDERED: LABETALOL HCL 100 MG TAB PO ONE (13:15)
[2016-02-23] MEDS ORDERED: POLYETHYLENE GLYCOL 17 GM PKG PO ONE (13:15)
--- NOTE | 2016-02-23 13:19 | HHI.PR ---
Subjective Remarks The patient was lethargic. He had no acute complaints. He was not sure why he was so tired. He wanted to know how long he would have to be at rehabilitation for. Discussed with case management. Objective Vitals Vital Signs Date Time Temp Pulse Resp B/P Pulse Ox O2 Delivery O2 Flow Rate FiO2 02/23/16 12:00 97.1 84 18 168/84 97 02/23/16 08:00 97.8 89 18 168/88 96 02/23/16 04:00 96.5 75 20 159/88 99 02/23/16 03:16 90 02/22/16 20:00 96.0 86 20 167/83 96 02/22/16 16:05 96.8 90 20 157/77 97 02/22/16 14:47 85 I/O 02/22/16 02/22/16 02/22/16 02/23/16 02/23/16 02/23/16 07:00 15:00 23:00 07:00 15:00 23:00 Intake Total 120 ml 480 ml Output Total 300 ml 800 ml Balance -180 ml -320 ml Intake Oral 120 ml 480 ml Output Urine Total 300 ml 800 ml # Bowel Movements 0 Result Diagram: 02/19/16 0424 02/22/16 0625 Imaging Last Impressions Hip and Pelvis X-Ray 02/20/16 0000 Signed Impressions: Service Date/Time: Saturday, February 20, 2016 22:22 - CONCLUSION: No acute findings. Mild osteoarthritis of the left hip. Ron Stahl MD Renal Ultrasound 02/18/16 0000 Signed Impressions: Service Date/Time: Thursday, February 18, 2016 22:15 - CONCLUSION: 1. Echogenic kidneys which can be seen with medical renal disease. 2. Tiny left renal cyst. Christopher Greer MD Head CT 02/17/16 0000 Signed Impressions: Service Date/Time: Wednesday, February 17, 2016 00:45 - CONCLUSION: Stable left parietal infarction. Alex Carbone Jr., MD Brain MRI 02/16/16 0043 Signed Impressions: Service Date/Time: Tuesday, February 16, 2016 03:47 - CONCLUSION: 1. Acute infarction involving left parietal lobe posteriorly. Tiny foci of signal abnormality consistent with blood product within this area of stroke. 2. Atrophy and chronic small vessel ischemic change. Alex Carbone Jr., MD ADDENDUM: In addition to the left sided acute infarct, there is a focus of restricted diffusion identified on the right, a sub-insular external capsule region also characteristic of an area of acute infarction.. Tree Haro MD Neck Magnetic Resonance Angiography 02/16/16 0000 Signed Impressions: Service Date/Time: Tuesday, February 16, 2016 03:47 - CONCLUSION: 1. Patent carotid arteries and vertebral arteries. Alex Carbone Jr., MD Head Magnetic Resonance Angiography 02/16/16 0000 Signed Impressions: Service Date/Time: Tuesday, February 16, 2016 03:47 - CONCLUSION: Normal examination. Alex Carbone Jr., MD Objective Remarks GENERAL: Well-nourished, well-developed pt appearing lethargic. SKIN: Warm and dry. HEAD: Atraumatic. Normocephalic. EYES: Pupils equal and round, 3mm reactive. No scleral icterus. No injection or drainage. ENT: No nasal bleeding or discharge. Mucous membranes pink and moist. NECK: Trachea midline. No JVD. CARDIOVASCULAR: Regular rate and rhythm. No murmurs rubs or gallops. No sternotomy scar RESPIRATORY: No accessory muscle use. Clear to auscultation. Breath sounds equal bilaterally. On room air GASTROINTESTINAL: Abdomen soft, non-tender, nondistended. Vertical abdominal incision well healed. MUSCULOSKELETAL: Extremities without clubbing, cyanosis, or edema. No obvious deformities. NEUROLOGICAL: Moves extremities 4, alert and oriented to self . No obvious cranial nerve deficits. Strength 3/5 in lower extremities, 4/5 in upper extremities. PSYCH: Withdrawn. Medications and IVs Current Medications Medications (Trade) Dose Ordered Sig/Ceasar Route Start Time Stop Time Status Last Admin (NS Flush) 2 ml UNSCH PRN IV FLUSH 02/16/16 03:45 (NS Flush) 2 ml BID IV FLUSH 02/16/16 09:00 02/23/16 09:45 (Morphine Inj) 2 mg Q2H PRN IV 02/16/16 03:45 02/16/16 23:14 (Zofran Inj) 4 mg Q6H PRN IV 02/16/16 03:45 02/17/16 09:24 Miscellaneous Information 1 Q361D XX 02/16/16 03:45 02/16/16 05:52 (D50w (Vial) Inj) 25 ml UNSCH PRN IV PUSH 02/16/16 03:45 (Glucagon Inj) 1 mg UNSCH PRN OTHER 02/16/16 03:45 (Apresoline Inj) 10 mg Q1HR PRN IV PUSH 02/16/16 20:30 02/20/16 05:20 (Apresoline) 50 mg TID PO 02/17/16 09:00 02/23/16 12:20 (Colace) 100 mg BID PO 02/17/16 21:00 02/23/16 09:45 (Haldol Inj) 5 mg Q12HR PRN IV 02/18/16 21:00 02/22/16 21:33 Amlodipine Besylate 10 mg 10 mg DAILY PO 02/18/16 13:00 02/23/16 09:45 (Coumadin Consult Pharmacy) 0 ml @ 0 mls/hr UNSCH OTHER 02/19/16 15:45 (Vitamin D3) 2,000 units DAILY PO 02/19/16 17:00 02/23/16 09:45 (Levemir Inj) 20 units DAILY SQ 02/22/16 09:00 02/23/16 09:45 (Levemir Inj) 15 units HS SQ 02/21/16 21:00 02/22/16 21:34 (Vasotec Inj) 1.25 mg Q6H PRN IV PUSH 02/21/16 15:45 (Protonix) 40 mg DAILY PO 02/23/16 09:00 02/23/16 09:45 (Coumadin) 7.5 mg ONCE ONCE PO 02/23/16 16:00 02/23/16 16:01 (Coumadin) 6 mg DAILY@16 PO 02/24/16 16:00 (Coumadin Booklet) 1 ONCE ONCE XX 02/23/16 16:00 02/23/16 16:01 (Trandate) 200 mg Q12HR PO 02/23/16 21:00 (Trandate) 100 mg ONCE ONCE PO 02/23/16 13:15 02/23/16 13:16 A/P Assessment and Plan Acute CVA/ metabolic encephalopathy L parietal ischemic stroke with small petechial hemorrhagic conversion. MRI L parietal stroke with tiny foci of hemorrhage. Echo with grade 1 diastolic dysfunction. Carotids without stenosis. Neurosurgery and neurology consults appreciated. Mental status stable 02/21. - Coumadin started per neurology as risk of recurrent CVA outweighs risk of bleeding. INR 1.4 02/22. - PT/OT/ST. Will need rehab. Cleared by neurology. Hypertension Blood pressure still slightly elevated 02/22. - hydralazine started. Added amlodipine 02/18/16. Increase labetalol 02/22. - Vasotec as needed. Agitation Psychiatry consult appreciated. Resolved. Now lethargic 02/22. - meds per psychiatry. Decrease Seroquel 02/22 s/t lethargy. Haldol as needed. REED vs ? chronic kidney disease Creatinine stable 02/21. Appreciate nephrology consult. - Follow-up BMP. - avoid nephrotoxic agents. Diabetes mellitus Glucose level has been elevated. Stable 02/22. - Medium dose insulin sliding scale ac/hs. Adjusted Levemir to 20 units daily, 15 units HS 02/20. PROPH: SCDs/teds, Coumadin. Discharge Planning D/c to rehab when bed available. Ismael Jerome DO Feb 23, 2016 13:19
[2016-02-23] MEDS: SENNOSIDES 8.6 MG TAB PO SCH (14:38)
[2016-02-23] MEDS ORDERED: WARFARIN SOD 7.5 MG TAB PO ONE (16:00)
[2016-02-23] MEDS ORDERED: WARFARIN SOD 6 MG TAB PO SCH (16:00)
[2016-02-23] MEDS: MORPHINE SULFATE 4 MG/ML INJ IV PRN (17:13)
[2016-02-24] VITALS: BP 127/69; PULSE 83; RESP 20; TEMP 96.4; O2SAT 96
[2016-02-24 04:00] VITALS: BP 130/64; PULSE 78; RESP 20; TEMP 96.9; O2SAT 98
[2016-02-24] MEDS: INSULIN ASPART SUPPLEMENTAL SCALE SQ SCH ×3 (06:43→18:30)
[2016-02-24 08:00] VITALS: BP 152/80; PULSE 76; RESP 18; TEMP 96; O2SAT 98
[2016-02-24] MEDS: LABETALOL HCL 100 MG TAB PO SCH (08:57)
[2016-02-24] MEDS: hydrALAZINE HCL 50 MG TAB PO SCH ×3 (08:57→18:21)
[2016-02-24] MEDS: SENNOSIDES 8.6 MG TAB PO SCH (08:58)
[2016-02-24] MEDS: DOCUSATE SODIUM 100 MG CAP PO SCH (08:58)
[2016-02-24] MEDS: CHOLECALCIFEROL (VIT D3) 1000 UNIT TAB PO SCH (08:58)
[2016-02-24] MEDS: QUEtiapine FUMARATE 25 MG TAB PO SCH (08:58)
[2016-02-24] MEDS: PANTOPRAZOLE SOD 40 MG DELAYED RELEASE TAB PO SCH (08:58)
[2016-02-24] MEDS: INSULIN DETEMIR 100 UNITS/ML VIAL SQ SCH (09:08)
[2016-02-24] MEDS: SODIUM CHLORIDE 0.9% FLUSH 5 ML FLUSH IV FLUSH SCH (09:09)
[2016-02-24 10:00] LABS: INTERNATIONAL NORMALIZED RATIO 1.5 RATIO; PROTHROMBIN TIME - PATIENT 16.6 SEC (9.8-11.6)
[2016-02-24 10:15] LABS: BICARBONATE 25.6 MEQ/L (21.0-32.0); MAGNESIUM 2.6 MG/DL (1.5-2.5); POTASSIUM 4.4 MEQ/L (3.5-5.1)
[2016-02-24 12:00] VITALS: BP 154/79; PULSE 80; RESP 18; TEMP 96.1; O2SAT 98
[2016-02-24] MEDS ORDERED: QUET1TAB7 PO (13:02)
[2016-02-24] MEDS ORDERED: COUM6TAB PO (13:02)
[2016-02-24] MEDS ORDERED: AMLO10 PO (13:02)
[2016-02-24] MEDS ORDERED: LEVEMIR SQ ×2 (13:02)
[2016-02-24] MEDS ORDERED: ALBU0.08 INH (13:02)
[2016-02-24] MEDS ORDERED: HYDR50TA15 PO (13:02)
[2016-02-24] MEDS ORDERED: LABE100T2 PO (13:02)
--- NOTE | 2016-02-24 13:02 | HHI.DCPOC ---
Discharge Care Plan Diagnosis: (1) Major neurocognitive disorder due to another medical condition with behavioral disturbance (2) Chronic renal disease, stage 4, severely decreased glomerular filtration rate (GFR) between 15-29 mL/min/1.73 square meter (3) Uncontrolled diabetes mellitus (4) Hypertension (5) Hemorrhagic stroke Goals to Promote Your Health * To prevent worsening of your condition and complications * To maintain your health at the optimal level Directions to Meet Your Goals Take your medications as prescribed Follow your dietary instruction Follow activity as directed Keep your appointments as scheduled Take your immunizations and boosters as scheduled If your symptoms worsen call your PCP, if no PCP go to Urgent Care Center or Emergency Room Smoking is Dangerous to Your Health. Avoid second hand smoke Call the 24-hour hour crisis hotline for domestic abuse at Jamal Ellis MD Feb 24, 2016 13:02
--- NOTE | 2016-02-24 13:58 | HHI.DS ---
Discharge Summary Admission Date Feb 16, 2016 at 03:37 Discharge Date: Feb 24, 2016 Admitting Diagnosis Hemorrhagic CVA, Hyperglycemia (1) CVA (cerebral vascular accident) ICD Code: I63.9 (2) Uncontrolled diabetes mellitus ICD Code: E11.65 (3) Hypertension ICD Code: I10 Procedures None Brief History - From Admission 50-year-old male who was accepted in transfer from [facility] by Dr. Valero with neurosurgery. He has a past history of prior stroke reportedly with no residual deficits, hypertension, diabetes mellitus. He presented to [facility] via [facility] with 2 day history of left- sided weakness and "feeling confused". Documentation from outside hospital indicates that he has frequent ED visits related to weakness. His blood glucose was 340. He had had no reported seizure activity. Documentation indicates that he had left-sided pronator drift and expressive aphasia. CT brain report indicates that there was a comparison study from 11/30/15 that states new left temporoparietal hypodensity with mild mass effect and sulcal effacement. There is central hyperdensity in this location suggesting early petechial hemorrhage. Remote gangliocapsular lacunar infarcts. Remote infarct right cerebellum. EKG demonstrates sinus rhythm. CBC/BMP: 02/24/16 0840 Significant Findings Laboratory Tests Test 02/22/16 02/23/16 02/24/16 06:25 06:47 08:40 Prothrombin Time 16.1 SEC 15.5 SEC 16.6 SEC (9.8-11.6) (9.8-11.6) (9.8-11.6) Chloride Level 110 MEQ/L 108 MEQ/L (98-107) (98-107) Blood Urea Nitrogen 20 MG/DL (7-18) 27 MG/DL (7-18) Creatinine 2.67 MG/DL 2.46 MG/DL (0.60-1.30) (0.60-1.30) Estimat Glomerular Filtration 25 ML/MIN (>89) 27 ML/MIN (>89) Rate Random Glucose 67 MG/DL (74-106) Magnesium Level 2.6 MG/DL (1.5-2.5) Imaging Last Impressions Hip and Pelvis X-Ray 02/20/16 Signed Impressions: Service Date/Time: Saturday, February 20, 2016 22:22 - CONCLUSION: No acute findings. Mild osteoarthritis of the left hip. Ron Stahl MD Renal Ultrasound 02/18/16 Signed Impressions: Service Date/Time: Thursday, February 18, 2016 22:15 - CONCLUSION: 1. Echogenic kidneys which can be seen with medical renal disease. 2. Tiny left renal cyst. Christopher Greer MD Head CT 02/17/16 Signed Impressions: Service Date/Time: Wednesday, February 17, 2016 00:45 - CONCLUSION: Stable left parietal infarction. Alex Carbone Jr., MD Brain MRI 02/16/163 Signed Impressions: Service Date/Time: Tuesday, February 16, 2016 03:47 - CONCLUSION: 1. Acute infarction involving left parietal lobe posteriorly. Tiny foci of signal abnormality consistent with blood product within this area of stroke. 2. Atrophy and chronic small vessel ischemic change. Alex Carbone Jr., MD ADDENDUM: In addition to the left sided acute infarct, there is a focus of restricted diffusion identified on the right, a sub-insular external capsule region also characteristic of an area of acute infarction.. Tree Haro MD Neck Magnetic Resonance Angiography 02/16/16 Signed Impressions: Service Date/Time: Tuesday, February 16, 2016 03:47 - CONCLUSION: 1. Patent carotid arteries and vertebral arteries. Alex Carbone Jr., MD Head Magnetic Resonance Angiography 02/16/16 Signed Impressions: Service Date/Time: Tuesday, February 16, 2016 03:47 - CONCLUSION: Normal examination. Alex Carbone Jr., MD PE at Discharge General: No acute distress. Heart: Regular rate and rhythm. No murmur. Lungs: Clear to auscultation bilaterally. No wheezes, rales, or rhonchi. Breathing is nonlabored. Abdomen: Soft, nontender, nondistended. Extremities: No lower extremity edema. Psych: Alert and oriented. Pt update on day of discharge No complaints at this time. Feels that he is ready to leave the hospital. Denies pain, dyspnea. Hospital Course The patient was transferred from [facility] for neurosurgical evaluation. He was treated for left parietal ischemic stroke with small petechial hemorrhagic conversion. Neurosurgery and neurology were consulted. Source was felt to be cardioembolic. Patient was started on Coumadin for anticoagulation. Psychiatry was consulted for evaluation of neurocognitive disorder secondary to CVA. He was started on Seroquel. His symptoms improved and his agitation resolved. Nephrology was consulted regarding chronic kidney disease. Creatinine remained elevated, but stable. PT/OT/ST were continued. Patient was cleared for discharge to rehabilitation by neurology. Case management arranged SNF for further rehabilitation. Pt Condition on Discharge: Stable Discharge Disposition: Discharge to SNF Discharge Time: <= 30 minutes Discharge Instructions DIET: Follow Instructions for: As Tolerated, No Restrictions, Coumadin ( Warfarin) Diet Speech Therapy-Diet Recommends: Regular Activities you can perform: Regular-No Restrictions Other Activity Instructions: With assistance. Follow up Referrals: Neurology - 1 Week with Walt Peterson MD PCP Follow-up - 1 Week New Orders: PT/INR - Next Day New Medications: Albuterol Neb (Albuterol Neb) 2.5 Mg/3 Ml Neb 2.5 MG INH Q2HR NEB PRN SOB/WHEEZING #30 Ref 0 NEBULE Amlodipine (Norvasc) 10 Mg Tab 10 MG PO DAILY Blood Pressure Management #30 TAB Hydralazine (Hydralazine) 50 Mg Tab 50 MG PO TID Blood Pressure Management #90 TAB Insulin Detemir Inj (Levemir Inj) 1,000 unit/ 10 ML Vial 20 UNITS SQ DAILY Blood Sugar Management #30 INJECTION Insulin Detemir Inj (Levemir Inj) 1,000 unit/ 10 ML Vial 15 UNITS SQ HS Blood Sugar Management #30 INJECTION Labetalol (Labetalol) 100 Mg Tab 200 MG PO Q12HR Blood Pressure Management #60 TAB Quetiapine (Quetiapine) 25 Mg Tab 25 MG PO BID Agitation #60 TAB Warfarin (Coumadin) 6 Mg Tab 6 MG PO DAILY@16 CVA #30 TAB Jamal Ellis MD Feb 24, 2016 13:58
[2016-02-24 16:00] VITALS: BP 137/67; PULSE 81; RESP 18; TEMP 96.1; O2SAT 96
[2016-02-24] MEDS ORDERED: WARFARIN SOD 7.5 MG TAB PO SCH (16:00)
[2016-02-24] MEDS ORDERED: WARFARIN SOD 6 MG TAB PO SCH (16:00)
[2016-02-25] MEDS ORDERED: INFLUENZA VIRUS VACCINE (QUADRIVALENT) 0.5 ML SYR IM ONE (10:00)
[2016-02-25] MEDS ORDERED: PNEUMOCOCCAL POLYVALENT INJ 25 MCG/0.5 ML SYR IM ONE (10:00)
[2016-02-25] MEDS ORDERED: WARFARIN SOD 6 MG TAB PO SCH (16:00)
== END 2016-02-24 19:25 | DRG 64 ==
LOC: NEPC 00:23 → NEDA 01:40 → OBSVTOIN 03:37 → N03B 05:05 → N05B 02-20 19:04
PROVIDERS: ADMIT Family Medicine; ATTEND Family Medicine
DX: I61.9 Nontraumatic intracerebral hemorrhage, unspecified (principal); G93.41 Metabolic encephalopathy; N18.4 Chronic kidney disease, stage 4 (severe); E11.22 Type 2 diabetes mellitus with diabetic chronic kidney disease; R47.01 Aphasia; E11.65 Type 2 diabetes mellitus with hyperglycemia; I12.9 Hypertensive chronic kidney disease with stage 1 through stage 4 chronic kidney disease, or unspecified chronic kidney disease; E78.5 Hyperlipidemia, unspecified; E11.319 Type 2 diabetes mellitus with unspecified diabetic retinopathy without macular edema; E11.40 Type 2 diabetes mellitus with diabetic neuropathy, unspecified; H53.2 Diplopia; I25.2 Old myocardial infarction; M19.90 Unspecified osteoarthritis, unspecified site; R09.02 Hypoxemia; Z78.1 Physical restraint status; Z85.038 Personal history of other malignant neoplasm of large intestine; Z86.73 Personal history of transient ischemic attack (TIA), and cerebral infarction without residual deficits; Z87.891 Personal history of nicotine dependence; Z90.49 Acquired absence of other specified parts of digestive tract; Z91.19 Patient's noncompliance with other medical treatment and regimen
CPT/HCPCS: 70450; 70544; 70547; 70551; 73502; 76775; 80048; 80053; 80061; 80307; 81001; 81240; 81241; 82306; 82550; 82607; 82746; 82948; 83036; 83735; 83921; 83970; 84100; 84165; 84425; 84443; 84450; 84460; 84484; 85025; 85027; 85240; 85300; 85303; 85306; 85610; 85613; 85652; 85730; 86038; 86147; 86592; 87641; 93005; 93225; 93226; 93306; 95819; C9113; C9399; G8987-GO; G8987-GP; G8988-GO; G8988-GP; J0171; J0360; J0461; J1630; J1815; J2060; J2250; J2270; J2405; J7030

== ENCOUNTER 2016-11-17 20:45 | Emergency (ER) | payer MEDICARE, OTHER ==
[~2016-11-17] VITALS: Ht 185.4 cm; Wt 113.5 kg
[~2016-11-17 20:45] MED LIST: ALBU0.08 INH; AMLO10 PO; COUM6TAB PO; HYDR50TA15 PO; LABE100T2 PO; LEVEMIR SQ; QUET1TAB7 PO
[2016-11-17 20:51] VITALS: BP 150/70; PULSE 90; RESP 20; TEMP 98.7; O2SAT 92; O2SAT 96
[2016-11-17 21:00] VITALS: BP 145/69; PULSE 87; PULSE 88; RESP 20; O2SAT 96; O2SAT 97
--- NOTE | 2016-11-17 21:25 | PD ---
HPI . Altered mental status Chief Complaint: Altered Mental Status Time Seen by Provider: 20:50 Travel History International Travel<30 days: No Contact w/Intl Traveler<30days: No Traveled to known affect area: No History of Present Illness HPI This patient is [facility] us from a [facility] with chief complaint of altered mental status. This patient is not able to give any history. [facility] reports that his mental status declined this afternoon. They presumed that it was secondary to hypoglycemia and treated him with oral glucose. The symptoms have persisted and he was brought to the hospital. PFSH Past Medical History Cancer: Yes (COLON) High Cholesterol: Yes Cerebrovascular Accident: Yes Diabetes: Yes Patient Takes Glucophage: No Hypertension: Yes Myocardial Infarction: Yes Past Surgical History Other Surgery: Yes (COLON CANCER SURGERY) Social History Alcohol Use: No Tobacco Use: No Substance Use: Yes (MARIJUANA) Allergies-Medications (Allergen,Severity, Reaction): Coded Allergies: No Known Allergies (Unverified , 02/16/16) Reported Meds & Prescriptions Reported Meds & Active Scripts Active Quetiapine (Quetiapine Fumarate) 25 Mg Tab 25 Mg PO BID Labetalol (Labetalol HCl) 100 Mg Tab 200 Mg PO Q12HR Levemir Inj (Insulin Detemir) 1,000 unit/ 10 ML Vial 15 Units SQ HS Levemir Inj (Insulin Detemir) 1,000 unit/ 10 ML Vial 20 Units SQ DAILY Norvasc (Amlodipine Besylate) 10 Mg Tab 10 Mg PO DAILY Reported [[facility] Topical Gel ] TOPICAL Q8HR PRN Novolin R Inj (Insulin Human Regular) 1,000 Unit/10 Ml Vial 0 SQ DIRECTED Sliding Scale As Directed. Tylenol-Codeine #3 (Acetaminophen-Codeine) 300-30 mg Tab 1 Tab PO Q8HR PRN Trazodone (Trazodone HCl) 100 Mg Tablet 100 Mg PO HS One Daily Complete (Multivitamin with Minerals) 1 Each Tablet 1 Tab PO DAILY Lexapro (Escitalopram Oxalate) 10 Mg Tab 10 Mg PO HS Lasix (Furosemide) 40 Mg Tab 40 Mg PO DAILY Hydralazine HCl 25 Mg Tablet 50 Mg PO TID Glucagon Inj 1 Mg/Ml Inj 1 Mg SQ ONCE PRN Dulcolax Supp (Bisacodyl) 10 Mg Supp 10 Mg RECTAL DAILY PRN Colace (Docusate Sodium) 100 Mg Capsule 1 Cap PO EVERY OTHER DAY PRN Depakote Sprinkles (Divalproex Sodium) 125 mg Cap 375 Mg PO TIDAC PRN D 1000 (Cholecalciferol) 1,000 Unit Tab 1 Tab PO DAILY Ativan (Lorazepam) 0.5 Mg Tab 0.5 Mg PO Q6H PRN Tylenol (Acetaminophen) 325 Mg Tab 650 Mg PO Q4H PRN Tylenol (Acetaminophen) 325 Mg Tab 650 Mg PO Q4H PRN Review of Systems ROS Limitations: Speech Impaired Physical Exam Narrative GENERAL: Obese, chronically ill-appearing man who is alert with minimal verbalization. SKIN: warm/dry. HEAD: Normocephalic. Atraumatic. EYES: Pupils equal and round. No scleral icterus. No injection or drainage. ENT: No nasal bleeding or discharge. Mucous membranes pink and moist. NECK: Trachea midline. Full range of motion without pain.. CARDIOVASCULAR: Regular rate and rhythm. Heart sounds were normal. RESPIRATORY: No accessory muscle use. Clear to auscultation. Breath sounds equal bilaterally. GASTROINTESTINAL: Abdomen soft. Nontender. Bowel sounds present. Nondistended. MUSCULOSKELETAL: No obvious deformities. Diffuse muscle atrophy. NEUROLOGICAL: Awake and alert. No obvious cranial nerve deficits. Speech is moaning with an occasional recognizable phrase. PSYCHIATRIC: Unable to evaluate. Data Data Last Documented VS Vital Signs Date Time Temp Pulse Resp B/P (MAP) Pulse Ox O2 Delivery O2 Flow Rate FiO2 11/18/16 01:00 78 13 150/72 (98) 96 Nasal Cannula 2.00 11/17/16 20:51 98.7 Orders Orders Electrocardiogram (11/17/16 20:50) Ammonia (11/17/16 20:50) Complete Blood Count With Diff (11/17/16 20:50) Comprehensive Metabolic Panel (11/17/16 20:50) Prothrombin Time / Inr (Pt) (11/17/16 20:50) Act Partial Throm Time (Ptt) (11/17/16 20:50) Troponin I (11/17/16 20:50) Urinalysis - C+S If Indicated (11/17/16 20:50) Lactic Acid Sepsis Protocol (11/17/16 20:50) Blood Culture (11/17/16 20:50) Chest, Single Ap (11/17/16 20:50) Ct Brain W/O Iv Contrast(Rout) (11/17/16 20:50) Ecg Monitoring (11/17/16 20:50) Iv Access Insert/Monitor (11/17/16 20:50) Cath For Specimen (11/17/16 20:50) Oximetry (11/17/16 20:50) Sodium Chloride 0.9% Flush (Ns Flush) (11/17/16 21:00) Sodium Chlor 0.9% 1000 Ml Inj (Ns 1000 M (11/17/16 22:15) Sodium Chlor 0.9% 1000 Ml Inj (Ns 1000 M (11/18/16 03:00) Ceftriaxone Inj (Rocephin Inj) (11/18/16 04:45) Labs Laboratory Tests Test 11/17/16 21:05 White Blood Count 17.6 TH/MM3 Red Blood Count 3.41 MIL/MM3 Hemoglobin 10.0 GM/DL Hematocrit 30.4 % Mean Corpuscular Volume 89.1 FL Mean Corpuscular Hemoglobin 29.4 PG Mean Corpuscular Hemoglobin Concent 33.0 % Red Cell Distribution Width 13.1 % Platelet Count 234 TH/MM3 Mean Platelet Volume 7.6 FL Neutrophils (%) (Auto) 87.3 % Lymphocytes (%) (Auto) 3.6 % Monocytes (%) (Auto) 8.4 % Eosinophils (%) (Auto) 0.4 % Basophils (%) (Auto) 0.3 % Neutrophils # (Auto) 15.4 TH/MM3 Lymphocytes # (Auto) 0.6 TH/MM3 Monocytes # (Auto) 1.5 TH/MM3 Eosinophils # (Auto) 0.1 TH/MM3 Basophils # (Auto) 0.0 TH/MM3 CBC Comment AUTO DIFF Differential Total Cells Counted 100 Neutrophils % (Manual) 77 % Band Neutrophils % 7 % Lymphocytes % 4 % Monocytes % 8 % Eosinophils % 1 % Basophils % 1 % Neutrophils # (Manual) 15.1 TH/MM3 Metamyelocytes 2 % Differential Comment FINAL DIFF MANUAL Platelet Estimate NORMAL Platelet Morphology Comment NORMAL Prothrombin Time 11.2 SEC Prothromb Time International Ratio 1.0 RATIO Activated Partial Thromboplast Time 29.4 SEC Blood Urea Nitrogen 44 MG/DL Creatinine 3.49 MG/DL Random Glucose 144 MG/DL Total Protein 7.8 GM/DL Albumin 2.7 GM/DL Calcium Level 9.0 MG/DL Alkaline Phosphatase 102 U/L Aspartate Amino Transf (AST/SGOT) 9 U/L Alanine Aminotransferase (ALT/SGPT) 15 U/L Total Bilirubin 0.6 MG/DL Sodium Level 138 MEQ/L Potassium Level 5.1 MEQ/L Chloride Level 104 MEQ/L Carbon Dioxide Level 26.7 MEQ/L Anion Gap 7 MEQ/L Estimat Glomerular Filtration Rate 18 ML/MIN Lactic Acid Level 1.1 mmol/L Ammonia 11 MCMOL/L Troponin I LESS THAN 0.02 NG/ML MDM Medical Decision Making Medical Screen Exam Complete: Yes Emergency Medical Condition: Yes Medical Record Reviewed: Yes (medical records from the [facility] have been reviewed. He has had a previous CVA resulting right hemiplegia and dysarthria. He has CK the stage IV, hypertension, diabetes and hyperlipidemia. He also has some psychiatric issues.) Interpretation(s) EKG shows a sinus rhythm with ventricular rate of 88. No acute ischemic changes noted. Differential Diagnosis Differential diagnosis of altered mental status includes but is not limited to infection, electrolyte abnormality, neurological event, intoxication Narrative Course This patient was [facility] us from the [facility] with reported altered mental status. I ordered a catheter urine. This patient told the nurse very clearly that he was not going to allow a catheter urine. CBC & BMP Diagram 11/17/16 21:05 Total Protein 7.8, Albumin 2.7 L, Calcium Level 9.0, Alkaline Phosphatase 102, Aspartate Amino Transf (AST/SGOT) 9 L, Alanine Aminotransferase (ALT/SGPT) 15, Total Bilirubin 0.6 Lactic acid level is 0.1. Troponin is less than 0.02. CT head: 1. No acute intracranial abnormality seen. 2. Atrophy. 3. Encephalomalacia at the left posterior temporal and parietal lobes. This is unchanged. 4. Ethmoid sinus disease. Chest x-ray is negative for acute disease. We have been waiting for hours for this patient to urinate. He absolutely refuses catheterization. Bladder scan was done and he has over 700 cc of urine in his bladder. He still refuses catheterization. I suspect that he has a UTI because of the AMS and elevated WBC. Patient has been here for almost 8 hours now. He states that he does not have the urge to urinate. He states that he will not allow a catheter. He seems to be totally lucid. He knows where he is and who he is. He is adamant that he is not going to urinate until he is ready to do so. We will have him sign a refusal of treatment form and discharge [facility] back to the [facility]. This patient does have an elevated white blood count. I will empirically give him a dose of Rocephin. I will further suggest to the [facility] that they attempt to obtain a urine sample. Diagnosis Primary Impression: Altered level of consciousness Patient Instructions: Altered Mental Status (ED), General Instructions Additional Instructions: Please attempt to obtain a urine sample from this patient. Disposition: DISCHARGE HOME Condition: Stable Robina Negro MD Nov 17, 2016 21:25
[2016-11-17 21:26] LABS: AUTOMATED NEUTROPHIL # 15.4 TH/MM3 (1.8-7.7); BASOPHIL % 0.3 % (0.0-2.0); EOSINOPHIL # 0.1 TH/MM3 (0-0.4); EOSINOPHIL % 0.4 % (0.0-4.0); HEMATOCRIT 30.4 % (39.0-51.0); LYMPH % 3.6 % (9.0-44.0); LYMPHOCYTE # 0.6 TH/MM3 (1.0-4.8); MEAN CELL VOLUME 89.1 FL (80.0-100.0); MEAN CORPUSCULAR HEMOGLOBIN 29.4 PG (27.0-34.0); MONO % 8.4 % (0.0-8.0); NEUT % 87.3 % (16.0-70.0); PLATELET COUNT 234 TH/MM3 (150-450); RED BLOOD COUNT 3.41 MIL/MM3 (4.50-5.90); RED CELL DISTRIBUTION WIDTH 13.1 % (11.6-17.2); WHITE BLOOD COUNT 17.6 TH/MM3 (4.0-11.0)
[2016-11-17 21:30] LABS: HEMO FLAGS AUTO DIFF
[2016-11-17 21:45] LABS: APTT (PATIENT) 29.4 SEC (24.3-30.1); PROTHROMBIN TIME - PATIENT 11.2 SEC (9.8-11.6)
[2016-11-17 21:46] LABS: ANION GAP 7 MEQ/L (5-15); AST (GOT) 9 U/L (15-37); BICARBONATE 26.7 MEQ/L (21.0-32.0); BLOOD UREA NITROGEN 44 MG/DL (7-18); CHLORIDE 104 MEQ/L (98-107); GLOMERULAR FILTRATION RATE 18 ML/MIN (>89); POTASSIUM 5.1 MEQ/L (3.5-5.1); SODIUM (NA) 138 MEQ/L (136-145)
[2016-11-17 21:47] LABS: ALT (GPT) 15 U/L (12-78)
[2016-11-17 21:51] LABS: ALKALINE PHOSPHATASE 102 U/L (45-117); TOTAL BILIRUBIN ADULT 0.6 MG/DL (0.2-1.0)
[2016-11-17 22:00] LABS: BANDS 7 % (0-6); BASOPHILS 1 % (0-2); EOSINOPHILS 1 % (0-4); METAMYELOCYTES 2 % (0-1); POLYS (SEG NEUTROPHILS) 77 % (16-70)
[2016-11-17 22:01] LABS: NEUTROPHIL # MANUAL DIFF 15.1 TH/MM3 (1.8-7.7); SCAN/DIFF FINAL DIFF MANUAL; WBC DIFF SAMPLE 100
[2016-11-17 22:02] LABS: PLATELET ESTIMATE SMEAR NORMAL (NORMAL); PLATELET MORPHOLOGY NORMAL (NORMAL)
[2016-11-17] MEDS ORDERED: SODIUM CHLOR 0.9% 1000 ML INJ 1,000 ML IV ONE (22:15)
--- NOTE | 2016-11-17 22:15 | RADRPT ---
EXAM DATE/TIME: 11/17/2016 21:20 [facility] COMPARISON: CT BRAIN W/O CONTRAST, February 17, 2016, 0:45. INDICATIONS : Alteerd mental status. RADIATION DOSE: 35.23 CTDIvol (mGy) MEDICAL HISTORY : Cerebrovascular disease. Cardiovascular disease Carcinoma, colon.HTN Diabetes SURGICAL HISTORY : None. ENCOUNTER: Initial ACUITY: 1 day PAIN SCALE: Non-responsive LOCATION: cranial TECHNIQUE: Multiple contiguous axial images were obtained of the head. Using automated exposure control and adj ustment of the mA and/or kV according to patient size, radiation dose was kept as low as reasonably a chievable to obtain optimal diagnostic quality images. DICOM format image data is available electro nically for review and comparison. FINDINGS: CEREBRUM: The ventricles and cortical sulci are widened. There is a persistent encephalomalacia at the left tem poral parietal region. There is some mild decreased density in the periventricular white matter like ly from small vessel ischemic change. There are old lacunar infarcts at the basal ganglia regions lito aterally. No evidence of midline shift, mass lesion, hemorrhage or acute infarction. No extra-axial fluid collections are seen. POSTERIOR FOSSA: The cerebellum and brainstem are intact. The 4th ventricle is midline. The cerebellopontine angle i s unremarkable. EXTRACRANIAL: The visualized portion of the orbits is intact. There is mucosal disease throughout the ethmoid air c ells. SKULL: The calvaria is intact. No evidence of skull fracture. CONCLUSION: 1. No acute intracranial abnormality seen. 2. Atrophy. 3. Encephalomalacia at the left posterior temporal and parietal lobes. This is unchanged. 4. Ethmoid sinus disease. Jeremy Finch MD on November 17, 2016 at 22:10 Board Certified Radiologist. This report was verified electronically.
[2016-11-17 22:30] VITALS: BP 149/72; PULSE 86; RESP 15; O2SAT 97
[2016-11-17] MEDS: SODIUM CHLORIDE 0.9% FLUSH 5 ML FLUSH IV FLUSH PRN (22:35)
[2016-11-17 23:00] VITALS: BP 155/72; PULSE 88; RESP 13; O2SAT 96
--- NOTE | 2016-11-17 23:24 | RADRPT ---
EXAM DATE/TIME: 11/17/2016 21:30 [facility] COMPARISON: No previous studies available for comparison. INDICATIONS : Syncopal episode today MEDICAL HISTORY : None. SURGICAL HISTORY : None. ENCOUNTER: Initial ACUITY: 1 day PAIN SCORE: Non-responsive. LOCATION: chest FINDINGS: The heart size is normal. The lungs are grossly clear. No effusion is seen. There is anterior cervica l fusion plate present. CONCLUSION: No acute disease. Jeremy Finch MD on November 17, 2016 at 23:22 Board Certified Radiologist. This report was verified electronically.
[2016-11-17] MEDS ORDERED: FURO1TAB60 PO (23:53)
[2016-11-17] MEDS ORDERED: HYDR-3799 PO (23:53)
[2016-11-17] MEDS ORDERED: GLUC0.8I2 SQ (23:53)
[2016-11-17] MEDS ORDERED: VITA1000 PO (23:53)
[2016-11-17] MEDS ORDERED: NOVORP2 SQ (23:53)
[2016-11-17] MEDS ORDERED: LORA-392 PO (23:53)
[2016-11-17] MEDS ORDERED: ABH TOPICAL (23:53)
[2016-11-17] MEDS ORDERED: ONETAB26 PO (23:53)
[2016-11-17] MEDS ORDERED: DIVA125C PO (23:53)
[2016-11-17] MEDS ORDERED: TYLE325T PO (23:53)
[2016-11-17] MEDS ORDERED: TRAZ100T6 PO (23:53)
[2016-11-17] MEDS ORDERED: TYLETAB34 PO (23:53)
[2016-11-17] MEDS ORDERED: COLA100C PO (23:53)
[2016-11-17] MEDS ORDERED: LEXA10TA PO (23:53)
[2016-11-17] MEDS ORDERED: DULC10SU3 RECTAL (23:53)
[2016-11-18] VITALS: BP 146/70; PULSE 85; RESP 14; O2SAT 99
[2016-11-18 01:00] VITALS: BP 150/72; PULSE 78; RESP 13; O2SAT 96
[2016-11-18] MEDS ORDERED: SODIUM CHLOR 0.9% 1000 ML INJ 1,000 ML IV ONE (03:00)
[2016-11-18] MEDS: SODIUM CHLORIDE 0.9% FLUSH 5 ML FLUSH IV FLUSH PRN (03:15)
[2016-11-18] MEDS ORDERED: cefTRIAXone INJ 1,000 MG in SODIUM CHLORIDE 0.9% INJ 100 ML IV ONE (04:45)
[2016-11-18 06:23] LABS: BACTERIA, URINE OCC /hpf; BLOOD, URINE TRACE (NEG); COMMENT (UR) CATH-CULTURE IND; CULTURE IF INDICATED CATH CULTURE IND; GLUCOSE,URINE NEG (NEG); KETONE, URINE NEG (NEG); NITRITE,URINE NEG (NEG); URINE COLOR LIGHT-YELLOW (YELLW/STRAW)
[2016-11-18] MEDS ORDERED: MACR100C2 PO (06:42)
[2016-11-18] MEDS ORDERED: NITROFURANTOIN MONOHYD MACROCR 100 MG CAP PO ONE (06:45)
[2016-11-18 07:15] VITALS: BP 178/80; PULSE 89; RESP 15; O2SAT 96
--- NOTE | 2016-11-18 14:52 | EKG ---
Date Performed: 11/17/2016 Time Performed: 20:55:57 PTAGE: 61 years EKG: Sinus rhythm ST ELEVATION, PROBABLY EARLY REPOLARIZATION BORDERLINE ECG PREVIOUS TRACING : 02/18/2016 12.32 Compared to prior tracing no significant change DOCTOR: Héctor Ambrocio Interpretating Date/Time 11/18/2016 14:51:18
== END 2016-11-18 10:12 | disposition home or self-care (01) ==
LOC: NEPE 20:45
DX: R41.82 Altered mental status, unspecified (principal); G93.89 Other specified disorders of brain; I69.922 Dysarthria following unspecified cerebrovascular disease; I69.951 Hemiplegia and hemiparesis following unspecified cerebrovascular disease affecting right dominant side; E11.22 Type 2 diabetes mellitus with diabetic chronic kidney disease; I12.9 Hypertensive chronic kidney disease with stage 1 through stage 4 chronic kidney disease, or unspecified chronic kidney disease; N18.4 Chronic kidney disease, stage 4 (severe); E78.5 Hyperlipidemia, unspecified; E78.00 Pure hypercholesterolemia, unspecified
CPT/HCPCS: 51798; 70450; 71010; 80053; 81001; 82140; 83605; 84484; 85007; 85027; 85610; 85730; 87040; 87086; 93005; 96360; 96361; 99285; J7030

== ENCOUNTER 2016-12-24 20:53 | Emergency (ER) | payer MEDICARE, OTHER ==
[~2016-12-24] VITALS: Ht 185.4 cm; Wt 95.0 kg
[~2016-12-24 20:53] MED LIST changes: +ABH TOPICAL; -ALBU0.08 INH; +COLA100C5 PO; -COUM6TAB PO; +DIVA125C PO; +DULC10SU3 RECTAL; +FURO1TAB60 PO; +GLUC0.8I2 SQ; +HYDR-3799 PO; -HYDR50TA15 PO; +LEXA10TA PO; +LORA-392 PO; +MACR100C2 PO; +NOVORP2 SQ; +ONETAB26 PO; +TRAZ100T10 PO; +TYLE325T PO; +TYLETAB34 PO; +VITA1000 PO
[2016-12-24 21:18] VITALS: BP 173/85; PULSE 102; RESP 16; TEMP 99; O2SAT 97
[2016-12-24 22:01] LABS: AUTOMATED NEUTROPHIL # 11.5 TH/MM3 (1.8-7.7); BASOPHIL # 0.1 TH/MM3 (0-0.2); BASOPHIL % 0.7 % (0.0-2.0); EOSINOPHIL % 0.3 % (0.0-4.0); HEMATOCRIT 34.3 % (39.0-51.0); HEMO FLAGS DIFF FINAL; LYMPH % 8.5 % (9.0-44.0); LYMPHOCYTE # 1.2 TH/MM3 (1.0-4.8); MEAN CELL VOLUME 88.2 FL (80.0-100.0); MEAN CORPUSCULAR HEMOGLOBIN 28.9 PG (27.0-34.0); MEAN CORPUSCULAR HGB CONC 32.7 % (32.0-36.0); MONO % 6.9 % (0.0-8.0); NEUT % 83.6 % (16.0-70.0); PLATELET COUNT 272 TH/MM3 (150-450); RED BLOOD COUNT 3.89 MIL/MM3 (4.50-5.90); RED CELL DISTRIBUTION WIDTH 13.8 % (11.6-17.2); WHITE BLOOD COUNT 13.7 TH/MM3 (4.0-11.0)
--- NOTE | 2016-12-24 22:05 | PD ---
HPI Chief Complaint: GI Complaint Time Seen by Provider: 21:00 Travel History International Travel<30 days: No Contact w/Intl Traveler<30days: No Traveled to known affect area: No History of Present Illness HPI Patient is sent from a intermediate. EMS reports he is vomiting was the main complaint. It starting today. 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 He is in the intermediate rehabilitation for long-term. He receives neuroleptics Seroquel and Ativan as well as other medications. He is not responding to my questions although he is awake and alert. Intermittently he starts to scream out loud when I asked him if he has pain he says 'yes' but he does not answer me where. Patient vitals are normal he is afebrile , no active vomit since being in ER.. Will work him up to see if there is any infectious source causing his deterioration of his mental status. this could be medical delirium secondary to a UTI or pneumonia. Will search for vomit or GI signs or symptoms ... PFSH Past Medical History Cancer: Yes (COLON) High Cholesterol: Yes Cerebrovascular Accident: Yes Diabetes: Yes Patient Takes Glucophage: No Hypertension: Yes Myocardial Infarction: Yes ?: Not Past Surgical History Other Surgery: Yes (COLON CANCER SURGERY) Social History Alcohol Use: No Tobacco Use: No Substance Use: Yes (MARIJUANA) Allergies-Medications (Allergen,Severity, Reaction): Coded Allergies: No Known Allergies (Unverified Adverse Reaction, Unknown, 12/24/16) Reported Meds & Prescriptions Reported Meds & Active Scripts Active Quetiapine (Quetiapine Fumarate) 25 Mg Tab 25 Mg PO BID Labetalol (Labetalol HCl) 100 Mg Tab 200 Mg PO Q12HR Levemir Inj (Insulin Detemir) 1,000 unit/ 10 ML Vial 15 Units SQ HS Levemir Inj (Insulin Detemir) 1,000 unit/ 10 ML Vial 20 Units SQ DAILY Norvasc (Amlodipine Besylate) 10 Mg Tab 10 Mg PO DAILY Reported [ABH Topical Gel ] TOPICAL Q8HR PRN Novolin R Inj (Insulin Human Regular) 1,000 Unit/10 Ml Vial 0 SQ DIRECTED Sliding Scale As Directed. Tylenol-Codeine #3 (Acetaminophen-Codeine) 300-30 mg Tab 1 Tab PO Q8HR PRN Trazodone (Trazodone HCl) 100 Mg Tablet 100 Mg PO HS One Daily Complete (Multivitamin with Minerals) 1 Each Tablet 1 Tab PO DAILY Lexapro (Escitalopram Oxalate) 10 Mg Tab 10 Mg PO HS Lasix (Furosemide) 40 Mg Tab 40 Mg PO DAILY Hydralazine HCl 25 Mg Tablet 50 Mg PO TID Glucagon Inj 1 Mg/Ml Inj 1 Mg SQ ONCE PRN Dulcolax Supp (Bisacodyl) 10 Mg Supp 10 Mg RECTAL DAILY PRN Colace (Docusate Sodium) 100 Mg Capsule 1 Cap PO EVERY OTHER DAY PRN Depakote Sprinkles (Divalproex Sodium) 125 mg Cap 375 Mg PO TIDAC PRN D 1000 (Cholecalciferol) 1,000 Unit Tab 1 Tab PO DAILY Ativan (Lorazepam) 0.5 Mg Tab 0.5 Mg PO Q6H PRN Tylenol (Acetaminophen) 325 Mg Tab 650 Mg PO Q4H PRN Tylenol (Acetaminophen) 325 Mg Tab 650 Mg PO Q4H PRN Review of Systems ROS Limitations: Other: ( minimally verbal and screaming intermittently) Physical Exam Narrative GENERAL: staring straight out, without eye movements, intermittently responds yes or no to a novel question.. and also screaming at times SKIN: Warm and dry. HEAD: Atraumatic. Normocephalic. EYES: Pupils equal and round. does no move eyes stares only straight ahead, ENT: No nasal bleeding or discharge. Mucous membranes pink and moist. NECK: Trachea midline. No JVD. CARDIOVASCULAR: Regular rate and rhythm. RESPIRATORY: No accessory muscle use. Clear to auscultation. Breath sounds equal bilaterally. tight foreskin almost Phimosis I was unable to pass al I made multiple attempts and spent 5- 10 minutes trying to pass cudet al GASTROINTESTINAL: Abdomen soft, nondistended. Hepatic and splenic margins not palpable. RECTAL: GUAIC NEGATIVE brown stool MUSCULOSKELETAL: Extremities weak legs partially contracted NO cyanosis, or edema.. Data Data Last Documented VS Vital Signs Date Time Temp Pulse Resp B/P (MAP) Pulse Ox O2 Delivery O2 Flow Rate FiO2 12/25/16 07:00 12/25/16 06:52 70 16 Room Air 12/25/16 00:17 99.0 12/24/16 21:18 97 Orders Orders Complete Blood Count With Diff (12/24/16 21:33) Comprehensive Metabolic Panel (12/24/16 21:33) Troponin I (12/24/16 21:33) Electrocardiogram (12/24/16 ) Lipase (12/24/16 21:33) Chest, Single Ap (12/24/16 ) Haloperidol Inj (Haldol Inj) (12/24/16 22:15) Lorazepam Inj (Ativan Inj) (12/24/16 22:15) Ondansetron Inj (Zofran Inj) (12/24/16 22:15) Sodium Chlor 0.9% 1000 Ml Inj (Ns 1000 M (12/24/16 22:30) Morphine Inj (Morphine Inj) (12/24/16 22:30) Urinary Catheter Management YANIRA.Q8H (12/24/16 22:57) Trazodone (Desyrel) (12/25/16 02:45) Quetiapine (Seroquel) (12/25/16 02:45) Ed Discharge Order (12/25/16 05:46) Labs Laboratory Tests Test 12/24/16 21:30 White Blood Count 13.7 TH/MM3 Red Blood Count 3.89 MIL/MM3 Hemoglobin 11.2 GM/DL Hematocrit 34.3 % Mean Corpuscular Volume 88.2 FL Mean Corpuscular Hemoglobin 28.9 PG Mean Corpuscular Hemoglobin Concent 32.7 % Red Cell Distribution Width 13.8 % Platelet Count 272 TH/MM3 Mean Platelet Volume 8.1 FL Neutrophils (%) (Auto) 83.6 % Lymphocytes (%) (Auto) 8.5 % Monocytes (%) (Auto) 6.9 % Eosinophils (%) (Auto) 0.3 % Basophils (%) (Auto) 0.7 % Neutrophils # (Auto) 11.5 TH/MM3 Lymphocytes # (Auto) 1.2 TH/MM3 Monocytes # (Auto) 0.9 TH/MM3 Eosinophils # (Auto) 0.0 TH/MM3 Basophils # (Auto) 0.1 TH/MM3 CBC Comment DIFF FINAL Differential Comment Blood Urea Nitrogen 49 MG/DL Creatinine 3.52 MG/DL Random Glucose 184 MG/DL Total Protein 8.9 GM/DL Albumin 3.4 GM/DL Calcium Level 9.3 MG/DL Alkaline Phosphatase 100 U/L Aspartate Amino Transf (AST/SGOT) 15 U/L Alanine Aminotransferase (ALT/SGPT) 16 U/L Total Bilirubin 0.5 MG/DL Sodium Level 143 MEQ/L Potassium Level 5.5 MEQ/L Chloride Level 105 MEQ/L Carbon Dioxide Level 28.0 MEQ/L Anion Gap 10 MEQ/L Estimat Glomerular Filtration Rate 18 ML/MIN Troponin I LESS THAN 0.02 NG/ML Lipase 40 U/L MDM Medical Decision Making Medical Screen Exam Complete: Yes Emergency Medical Condition: Yes Differential Diagnosis GI bleeding , vs vomit from medication , vs sepsis vs PNA difficult to assess , pt non verbal Narrative Course I seached for vomitus , non seen in the entire time in ED Rectal exam was GUIAC NEGATIVE and Brown , nothing to indicate GI ilness or bleeding, CXR no PNA , pt vitals remained normal pt needed repeat dosing of haldol and ativan to keep his from screaming , and all studies normal and after 6 hrs observation sent back to [place] nurses called to confirm acceptance back at [place] Diagnosis Primary Impression: Vomiting Additional Impression: Agitation Patient Instructions: Acute Nausea and Vomiting (ED), Altered Mental Status (ED ), General Instructions Disposition: 01 DISCHARGE HOME Condition: Good Russel Ortiz MD Dec 24, 2016 22:05
[2016-12-24 22:15] LABS: ALT (GPT) 16 U/L (12-78); ANION GAP 10 MEQ/L (5-15); AST (GOT) 15 U/L (15-37); BLOOD UREA NITROGEN 49 MG/DL (7-18); CHLORIDE 105 MEQ/L (98-107); GLOMERULAR FILTRATION RATE 18 ML/MIN (>89); POTASSIUM 5.5 MEQ/L (3.5-5.1); SODIUM (NA) 143 MEQ/L (136-145)
[2016-12-24] MEDS ORDERED: LORazepam 2 MG/ML VIAL IV PUSH ONE (22:15)
[2016-12-24] MEDS ORDERED: ONDANSETRON HCL 4 MG/2 ML VIAL IV PUSH ONE (22:15)
[2016-12-24] MEDS ORDERED: HALOPERIDOL LACTATE 5 MG/ML AMP IV PUSH ONE (22:15)
[2016-12-24 22:19] LABS: ALKALINE PHOSPHATASE 100 U/L (45-117); TOTAL BILIRUBIN ADULT 0.5 MG/DL (0.2-1.0)
--- NOTE | 2016-12-24 22:19 | RADRPT ---
EXAM DATE/TIME: 12/24/2016 21:57 [facility] COMPARISON: CHEST SINGLE AP, November 17, 2016, 21:30. INDICATIONS : Fever. MEDICAL HISTORY : None. SURGICAL HISTORY : None. ENCOUNTER: Initial ACUITY: 1 day PAIN SCORE: Non-responsive. LOCATION: chest FINDINGS: A single view of the chest demonstrates the lungs to be symmetrically aerated without evidence of mas s, infiltrate or effusion. The cardiomediastinal contours are unremarkable. Osseous structures are intact. CONCLUSION: Normal examination. Alex Carbone Jr., MD on December 24, 2016 at 22:17 Board Certified Radiologist. This report was verified electronically.
[2016-12-24] MEDS ORDERED: SODIUM CHLOR 0.9% 1000 ML INJ 1,000 ML IV ONE (22:30)
[2016-12-24] MEDS ORDERED: MORPHINE SULFATE 2 MG/ML INJ IV PUSH ONE (22:30)
[2016-12-25 00:17] VITALS: BP 201/81; PULSE 109; RESP 16; TEMP 99
[2016-12-25] MEDS ORDERED: QUEtiapine FUMARATE 25 MG TAB PO ONE (02:45)
[2016-12-25] MEDS ORDERED: traZODone HCL 100 MG TAB PO ONE (02:45)
[2016-12-25 06:52] VITALS: BP 115/69; PULSE 70; RESP 16
--- NOTE | 2016-12-25 12:44 | EKG ---
Date Performed: 12/24/2016 Time Performed: 22:32:28 PTAGE: 61 years EKG: SINUS TACHYCARDIA NONSPECIFIC ST & T-WAVE ABNORMALITY ABNORMAL ECG PREVIOUS TRACING 11/17/16 Since previous tracing, ST changes of early repolarization no longer present. The nonspecific ST-T change is still present. DOCTOR: Ajit Lin Interpretating Date/Time 12/25/2016 12:42:09
== END 2016-12-25 07:17 | disposition home or self-care (01) ==
LOC: NEPE 20:53
DX: R11.10 Vomiting, unspecified (principal); R45.1 Restlessness and agitation; I69.920 Aphasia following unspecified cerebrovascular disease; E78.00 Pure hypercholesterolemia, unspecified; E11.9 Type 2 diabetes mellitus without complications; I10 Essential (primary) hypertension; I25.2 Old myocardial infarction; Z79.4 Long term (current) use of insulin; Z79.899 Other long term (current) drug therapy
CPT/HCPCS: 71010; 80053; 83690; 84484; 85025; 93005; 96361; 96374; 96375; 99285; J1630; J2060; J2270; J2405; J7030